=== PATIENT | female | born 1980 | race Caucasian/White ===

== ENCOUNTER 2021-09-30 16:30 | Emergency (ER) | payer BC, SELFPAY ==
[2021-09-30 16:31] VITALS: BP 118/47; PULSE 82; RESP 18; TEMP 36.8; O2SAT 98; BMI 48.4
--- NOTE | 2021-09-30 16:55 | HMH.EDGENADL ---
ED Disposition Clinical Impression: Second degree burn of back Qualifiers: Encounter type: initial encounter Qualified Code(s): T21.24XA - Burn of second degree of lower back, initial encounter Disposition: Home, Self-Care Condition on Discharge: Good Instructions: DI for Painting, How to Take Care of a Burn Additional Instructions: follow up PCP, return for worse - Critical Care Critical Care Time: No Attestation: On , the high probability of a clinically significant, sudden or life threatening deterioration of the following system(s) required my full and direct attention, intervention and personal management. The time I documented below is in addition to time spent performing reported procedures but includes the following listed in this critical care notation. Medical Decision Making - Medical Records Medical records reviewed: Yes: I reviewed the patient's medical records. - Adrian Inquiry Pt receiving controlled substance: No Vital Signs: 09/30/21 16:31 Temperature 98.2 F Temperature Source Oral Pulse Rate [Brachial] 82 Respiratory Rate 18 Blood Pressure [Right Arm] 118/47 L Blood Pressure Mean [Right Arm] 70 Blood Pressure Source [Right Arm] Automatic Cuff Blood Pressure Position [Right Arm] Sitting 02 Sat by Pulse Oximetry 98 Oxygen Delivery Method Room Air - Lab Data Lab Results 09/30/21 16:55: Urine Color Yellow, Urine Appearance Sl cloudy, Urine pH 5.5, Ur Specific [place] >= 1.030, Urine Protein Negative, Urine Glucose (UA) Negative, Urine Ketones Negative, Urine Blood Trace-i, Urine Nitrate Negative, Urine Bilirubin 1+ A, Urine Urobilinogen 1.0, Ur Leukocyte Esterase Negative, Urine RBC 3-5, Urine WBC None, Ur Squamous Epith Cells Occasional, Urine Bacteria Trace 09/30/21 17:20: WBC 9.2, RBC 4.37, Hgb 14.0, Hct 43.8, MCV 100.2 H, MCH 32.1 H, MCHC 32.1, RDW 14.5, Plt Count 393, MPV 9.2, Neut % (Auto) 72.6, Lymph % (Auto) 17.8, [place] % (Auto) 4.6, Eos % (Auto) 2.4, Baso % (Auto) 2.6 H, Neut # (Auto) 6.6, Lymph # (Auto) 1.6, [place] # (Auto) 0.4, Eos # (Auto) 0.2, Baso # (Auto) 0.2 09/30/21 17:20: Sodium 138, Potassium 3.8, Chloride 103, Carbon Dioxide 30, Anion Gap 8.8, BUN 14, Creatinine 0.80, Estimated Creat Clear 88, Estimated GFR 79, Est GFR ( Amer) 96, Glucose 96, Calcium 9.3 Result diagrams: 09/30/21 17:20 09/30/21 17:20 General Adult HPI - General Stated complaint: Sun burn affect kidneys Time Seen by Provider: 09/30/21 16:55 - History of Present Illness HPI narrative: c/o sunburn on back from tanning bed few days ago and decreased urine output reports h/o ckd just moved [place] yesterday Onset (ago): day(s) Radiation: non-radiation Severity: moderate Consistency: constant Relieving factors: none Exacerbating factors: none Associated symptoms: denies other symptoms - Related Data Allergies Allergy/AdvReac Type Severity Reaction Status Date / Time ibuprofen Allergy Verified 09/30/21 17:11 ketorolac [From Toradol] Allergy Verified 09/30/21 17:11 morphine Allergy Verified 09/30/21 17:11 tramadol Allergy Verified 09/30/21 17:11 [facility] History - Hepatitis A Screen Attestation statement:: This patient has been screened for Hepatitis A risk factors. ROS Obtained: Yes All systems reviewed & no additional complaints Physical Exam - General General appearance: alert, in no apparent distress - Head Head exam: atraumatic, normocephalic - Eye Eye exam: Present: normal appearance, PERRL, EOMI - Neck Neck exam: Present: normal inspection, full ROM, trachea midline - Chest Chest inspection: Present: normal inspection, symmetric chest wall rise. Absent: tenderness - Respiratory Respiratory exam: Present: normal lung sounds bilaterally. Absent: respiratory distress, wheezes - Cardiovascular Cardiovascular exam: Present: regular rate, normal rhythm, tachycardia, normal heart sounds - Abdominal Exam Abdominal exam: Present: soft. Absent: distent
--- NOTE | 2021-09-30 16:56 | PC.NURSE ---
ATTEMPTING TO COLLECT UA AT THIS TIME
[2021-09-30 17:09] LABS: Microscopic, Urine URINE MICROSCOPIC (MICROSCOPIC)
[2021-09-30 17:12] LABS: Appearance,Urine SL CLOUDY (Clear); Blood, Urine TRACE-I (Negative); Color,Urine YELLOW (Yellow); Glucose,Urine (UA) Negative (Negative); Ketones,Urine Negative (Negative); Leukocyte Esterase,Urine Negative (Negative); Nitrate,Urine Negative (Negative); PH,Urine 5.5 (5.0-8.5); Protein,Urine Negative (Negative); Specific Gravity, Urine >= 1.030 (1.005-1.030)
--- NOTE | 2021-09-30 17:20 | PC.NURSE ---
[id number] ED MD AT BEDSIDE FOR EVALUATION
[2021-09-30 17:28] LABS: Bilirubin,Urine 1+ (Negative)
[2021-09-30 17:30] LABS: Bacteria,Urine Trace /lpf; Squamous Epithelial Cell,Urine Occasional #/hpf (0-5)
[2021-09-30 17:39] LABS: Basophils # 0.2 K/mm3 (0-0.2); Basophils % 2.6 % (0.1-2.0); Chloride 103 mmol/L (98-107); Eosinophils # 0.2 K/mm3 (0.0-0.4); Eosinophils % 2.4 % (0.1-12.0); Hematocrit 43.8 % (37.0-47.0); Lymphocytes # 1.6 K/mm3 (0.7-4.5); Lymphocytes % 17.8 % (10-50); Mean Corpuscular HGB Conc 32.1 g/dL (31.8-35.4); Mean Corpuscular Hemoglobin 32.1 pg (27.0-31.2); Mean Corpuscular Volume 100.2 fl (81-99); Mean Platelet Volume 9.2 fl (7.4-10.4); Monocytes # 0.4 K/mm3 (0.1-1.0); Monocytes % 4.6 % (1.7-9.3); Neutrophils # 6.6 K/mm3 (1.8-7.8); Neutrophils % 72.6 % (37.0-80.0); Platelet Count 393 K/mm3 (142-424); Potassium 3.8 mmoL/L (3.5-5.1); Red Blood Count 4.37 M/mm3 (4.20-5.40); Red Cell Distribution Width 14.5 % (11.5-17.5); Sodium 138 mmol/L (136-145); White Blood Count 9.2 K/mm3 (4.8-10.8)
[2021-09-30 17:42] LABS: Anion Gap 8.8 mEq/L (5-15); Calcium 9.3 mg/dl (8.4-10.2); Carbon Dioxide 30 mmol/L (22.0-30.0); Glucose 96 mg/dl (74-100)
[2021-09-30 17:47] LABS: Blood Urea Nitrogen 14 mg/dl (7-17); Creatinine Clearance Estimated 88 mL/min (50-200); Estimated Glomerular Filt Rate 79 ml/min (>60); GFR (African American) 96 ML/MIN (>60)
--- NOTE | 2021-09-30 17:56 | PC.NURSE ---
ED MD AT BEDSIDE UPDATING PT ON POC
[2021-09-30 18:00] VITALS: BP 120/74; PULSE 79; RESP 18; TEMP 36.7; O2SAT 100
== END 2021-09-30 18:05 | disposition home or self-care (01) ==
PROVIDERS: Emergency Provider Emergency Medicine
DX: T21.24XA Burn of second degree of lower back, initial encounter (principal); L55.1 Sunburn of second degree; N18.9 Chronic kidney disease, unspecified; Z79.52 Long term (current) use of systemic steroids; Z88.5 Allergy status to narcotic agent; Z88.6 Allergy status to analgesic agent
CPT/HCPCS: 80048; 81001; 85025; 99283

== ENCOUNTER 2021-10-18 10:43 | Emergency (ER) | payer BC, SELFPAY ==
[2021-10-18 11:10] VITALS: BP 107/78; PULSE 74; RESP 18; TEMP 36.7; O2SAT 96; BMI 32.3
--- NOTE | 2021-10-18 11:13 | HMH.EDUTC ---
[facility] [place] Disposition Clinical Impression: Acute bronchitis Qualifiers: Bronchitis organism: unspecified organism Qualified Code(s): J20.9 - Acute bronchitis, unspecified Disposition: Home, Self-Care Condition on Discharge: Good Instructions: DI for Acute Bronchitis Additional Instructions: Drink plenty of fluids. Take tylenol or ibuprofen for pain or fever. Take the medications as directed. Follow up with your regular doctor. GO TO THE ER FOR ANY WORSENING SYMPTOMS Quarantine until you know the results of your covid-19 test. Notify your school or workplace of your results and follow their instructions regarding return to work/school. Prescriptions: Benzonatate [Benzonatate 100mg cap] 100 mg PO TIDP PRN #30 cap PRN Reason: Cough Transmission Status: Received by [facility] Azithromycin [Z-Dale 250mg Tab*] 250 mg PO UD DOSE PK #6 tab Transmission Status: Received by [facility] Referrals: Provider,Referral, [Primary Care Provider] - Time of Disposition: 11:48 Medical Decision Making - Medical Records Medical records reviewed: No: I reviewed the patient's medical records. - Adrian Inquiry Pt receiving controlled substance: No Vital Signs: 10/18/21 11:10 10/18/21 12:01 Temperature 98.1 F 98.1 F Temperature Source Oral Pulse Rate 74 Pulse Rate [Left] 74 Respiratory Rate 18 18 Blood Pressure 107/78 L Blood Pressure [Right Arm] 107/78 L Blood Pressure Mean [Right Arm] 87 02 Sat by Pulse Oximetry 96 - Lab Data Lab Results 10/18/21 11:04: Strep [facility] Negative Orders (Tests/Meds): ORDERS Category Date Time Status Strep Screen Confirmation Stat Micro 10/18/21 11:04 Received [facility] HPI - General Stated complaint: cough, chest congestion, body aches, elevated bp Time Seen by Provider: 10/18/21 11:13 Mode of Arrival: Ambulatory Source of Information: Patient Limitations: No Limitations Description of Symptoms (Recalled from Triage Doc. by RN): patient comes in with complaints of sore throat, cough, body aches, elevated blood pressure. symptoms began 2 days ago HEENT Symptoms (Recalled from RN notes): Yes Resp Symptoms (Recalled from RN notes): Yes Skin Symptoms (Recalled from RN notes): No MS Symptoms (Recalled from RN notes): No Functional Status (Recalled from RN notes): n/a - History of Present Illness Provider Complaint: She c/o worsening sinus congestion that began 2 days ago. - Related Data Previous Rx's Medication Instructions Recorded Azithromycin [Z-Dale 250mg Tab*] 250 mg PO UD DOSE PK #6 tab 10/18/21 Benzonatate [Benzonatate 100mg 100 mg PO TIDP PRN #30 cap 10/18/21 cap] Allergies Allergy/AdvReac Type Severity Reaction Status Date / Time ibuprofen Allergy Verified 09/30/21 17:11 ketorolac [From Toradol] Allergy Verified 09/30/21 17:11 morphine Allergy Verified 09/30/21 17:11 tramadol Allergy Verified 09/30/21 17:11 - Worker's Comp Is this a Worker's Comp case?: No H History - Hepatitis A Screen Attestation statement:: This patient has been screened for Hepatitis A risk factors. I have reviewed the patient's past medical history: Yes ROS Obtained: Yes All systems reviewed & no additional complaints - Constitutional Constitutional: Reports as per HPI - Eyes Eyes: Denies eye discharge - ENT Ears, Nose, Mouth, and Throat: Reports as per HPI - Cardiovascular Cardiovascular: Denies chest pain - Respiratory Respiratory: Reports chest congestion, Reports cough Physical Exam - General General appearance: alert, in no apparent distress - Head Head exam: atraumatic, normocephalic, normal inspection - Eye Eye exam: Present: normal appearance, PERRL, EOMI - ENT ENT exam: Present: normal exam, normal oropharynx, mucous membranes moist, TM's normal bilaterally, normal external ear exam - Neck Neck exam: Present: normal inspection, full ROM, tra
[2021-10-18 11:20] LABS: UTC Strep Screen (Rapid) Negative (Negative)
[2021-10-18 12:01] VITALS: BP 107/78; PULSE 74; RESP 18; TEMP 36.7
== END 2021-10-18 12:02 | disposition home or self-care (01) ==
PROVIDERS: Emergency Provider Nurse Practitioner Family
DX: J20.9 Acute bronchitis, unspecified (principal)
CPT/HCPCS: 87880; 99283; C9803; U0003; U0005

== ENCOUNTER 2021-10-25 11:21 | Emergency (ER) | payer OTHER, SELFPAY ==
--- NOTE | 2021-10-25 11:24 | PC.NURSE ---
pt ambulate to the restroom for urine sample
--- NOTE | 2021-10-25 11:30 | PC.NURSE ---
urine sent on pt
[2021-10-25 11:32] VITALS: BMI 46.7
--- NOTE | 2021-10-25 11:32 | HMH.EDGENADL ---
ED Disposition Clinical Impression: Essential hypertension Low back pain Qualifiers: Chronicity: acute Back pain laterality: right Sciatica presence: without sciatica Qualified Code(s): M54.50 - Low back pain, unspecified Disposition: Home, Self-Care Condition on Discharge: Good Instructions: DI for Low Back Pain Additional Instructions: Losartan/HCTZ as prescribed. Prednisone as prescribed. Robaxin as prescribed. Tylenol may also be taken. Off work for 2 days. You are being provided with a list of physicians available for follow-up of your condition. Please call a physician on this list to arrange a follow-up appointment as soon as possible. Additional instructions for BACK PAIN: See your physician as soon as possible for further evaluation. Return immediately if back pain becomes intolerable, or if fever, numbness or weakness of your legs, loss of control of your bowels or bladder. Additional instructions regarding BLOOD PRESSURE: One or more of your blood pressure readings elevated today. Please contact your primary care physician for further evaluation or treatment of your blood pressure. Prescriptions: Losartan/Hydrochlorothiazide [Losartan-Hctz 100-12.5 mg Tab] 1 each PO DAILY #30 tab Transmission Status: Received by [facility] methocarbamoL [Methocarbamol] 750 mg PO QID #20 tab Transmission Status: Received by [facility] predniSONE [Prednisone 20mg Tab] 20 mg PO BID #10 tab Transmission Status: Received by [facility] Referrals: Provider,Referral, [Primary Care Provider] - Forms: Work/School Release - Critical Care Critical Care Time: No Attestation: On 10/25/21, the high probability of a clinically significant, sudden or life threatening deterioration of the following system(s) required my full and direct attention, intervention and personal management. The time I documented below is in addition to time spent performing reported procedures but includes the following listed in this critical care notation. Medical Decision Making - Adrian Inquiry Pt receiving controlled substance: No Adrian was queried for this patient: Yes Vital Signs: 10/25/21 11:33 Temperature 98.2 F Temperature Source Oral Pulse Rate [Left Radial] 74 Respiratory Rate 18 Blood Pressure [Right Arm] 188/107 H Blood Pressure Mean [Right Arm] 134 02 Sat by Pulse Oximetry 98 Oxygen Delivery Method Room Air - Lab Data Lab Results 10/25/21 11:20: Urine Color Yellow, Urine Appearance Sl cloudy, Urine pH 5.0, Ur Specific [place] >= 1.030, Urine Protein Negative, Urine Glucose (UA) Negative, Urine Ketones Negative, Urine Blood 1+, Urine Nitrate Negative, Urine Bilirubin Negative, Urine Urobilinogen 0.2, Ur Leukocyte Esterase Negative Orders (Tests/Meds): ED MEDICATIONS Discontinued Medications Generic Name Dose Route Start Last Admin Trade Name Adrianne PRN Reason Stop Dose Admin Dexamethasone Sodium Phosphate 10 mg 10/25/21 11:42 10/25/21 11:46 Dexamethasone 4mg/Ml 1ml Vial IM 10/25/21 11:43 10 mg ONCE ONE Administration ORDERS Category Date Time Status Urinalysis and Microscopic Stat Lab 10/25/21 11:20 Results Medical Decision Narrative: Patient's blood pressure noted to be elevated. States that she is treated for hypertension with losartan/HCTZ 50/25 but does not have any of her medications since she moved here from [place]. She says that she has contacted her to ask to have it sent here, but he is refusing to do so. General Adult HPI - General Stated complaint: lower back pain, no known accident Time Seen by Provider: 10/25/21 11:30 - History of Present Illness HPI narrative: Complains of lower back pain. States that for the past couple days she has had pain in her right lower lumbar area. Pain increases with movement and touch. She says that she thinks she strained her back at work. She has a prior history of back p
[2021-10-25 11:33] VITALS: BP 188/107; PULSE 74; RESP 18; TEMP 36.8; O2SAT 98; BMI 46.7
[2021-10-25 11:39] LABS: Appearance,Urine SL CLOUDY (Clear); Bilirubin,Urine Negative (Negative); Blood, Urine 1+ (Negative); Color,Urine YELLOW (Yellow); Glucose,Urine (UA) Negative (Negative); Ketones,Urine Negative (Negative); Leukocyte Esterase,Urine Negative (Negative); Microscopic, Urine URINE MICROSCOPIC (MICROSCOPIC); Nitrate,Urine Negative (Negative); Protein,Urine Negative (Negative); Specific Gravity, Urine >= 1.030 (1.005-1.030); Urobilinogen,Urine 0.2 EU/dl (0.2)
[2021-10-25 11:51] VITALS: BP 179/102; PULSE 71; RESP 18; TEMP 36.8; O2SAT 99
[2021-10-25 11:54] LABS: Bacteria,Urine 2+ /lpf; RBC,Urine Occasional #/hpf (0-3); WBC,Urine Occasional #/hpf (0-3)
[2021-10-25 11:55] LABS: Mucus,Urine 1+ /lpf
== END 2021-10-25 11:58 | disposition home or self-care (01) ==
PROVIDERS: Emergency Provider Emergency Medicine
DX: M54.50 Low back pain, unspecified (principal); R20.2 Paresthesia of skin; I10 Essential (primary) hypertension; Z79.52 Long term (current) use of systemic steroids; Z88.5 Allergy status to narcotic agent; Z88.6 Allergy status to analgesic agent
CPT/HCPCS: 81001; 87086; 96372; 99284

== ENCOUNTER 2021-10-27 11:33 | Emergency (ER) | payer OTHER, SELFPAY ==
--- NOTE | 2021-10-27 11:40 | HMH.EDUTC ---
[facility] [place] Clinical Impression: Viral syndrome Pharyngitis Qualifiers: Pharyngitis/tonsillitis etiology: unspecified etiology Qualified Code(s): J02.9 - Acute pharyngitis, unspecified Disposition: Home, Self-Care Condition on Discharge: Good Instructions: DI for Pharyngitis/Tonsillopharyngitis -- Adult Additional Instructions: Drink plenty of fluids. Take tylenol or ibuprofen for pain or fever. Take the medications as directed. Follow up with your regular doctor. GO TO THE ER FOR ANY WORSENING SYMPTOMS Quarantine until you know the results of your covid-19 test. Notify your school or workplace of your results and follow their instructions regarding return to work/school. Prescriptions: Ondansetron [Zofran 4mg ODT] 4 mg PO Q8HP PRN #20 tab PRN Reason: Nausea Transmission Status: Received by [facility] Benzonatate [Benzonatate 100mg cap] 100 mg PO TIDP PRN #30 cap PRN Reason: Cough Transmission Status: Received by [facility] Referrals: Provider,Referral, [Primary Care Provider] - Forms: Work/School Release Time of Disposition: 12:37 Medical Decision Making - Medical Records Medical records reviewed: No: I reviewed the patient's medical records. - Adrian Inquiry Pt receiving controlled substance: No Vital Signs: 10/27/21 11:57 10/27/21 12:38 Temperature 98.0 F 98.0 F Temperature Source Oral Pulse Rate 68 Pulse Rate [Left] 68 Respiratory Rate 18 18 Blood Pressure 145/91 H Blood Pressure [Right Arm] 145/91 H Blood Pressure Mean [Right Arm] 109 02 Sat by Pulse Oximetry 96 - Lab Data Lab results reviewed: Yes: I reviewed the patient's lab results. Lab Results 10/27/21 12:19: Strep [facility] Negative Orders (Tests/Meds): ORDERS Category Date Time Status Strep Screen Confirmation Stat Micro 10/27/21 12:19 Received [facility] [place] HPI - General Stated complaint: Sore throat, cough, bodyaches Time Seen by Provider: 10/27/21 11:40 - History of Present Illness Provider Complaint: She states that for the past 1 days she has had worsening sore throat, right ear pain and she has felt bad. - Related Data Previous Rx's Medication Instructions Recorded Azithromycin [Z-Dale 250mg Tab*] 250 mg PO UD DOSE PK #6 tab 10/18/21 Benzonatate [Benzonatate 100mg 100 mg PO TIDP PRN #30 cap 10/18/21 cap] Losartan/Hydrochlorothiazide 1 each PO DAILY #30 tab 10/25/21 [Losartan-Hctz 100-12.5 mg Tab] methocarbamoL [Methocarbamol] 750 mg PO QID #20 tab 10/25/21 predniSONE [Prednisone 20mg 20 mg PO BID #10 tab 10/25/21 Tab] Benzonatate [Benzonatate 100mg 100 mg PO TIDP PRN #30 cap 10/27/21 cap] Ondansetron [Zofran 4mg ODT] 4 mg PO Q8HP PRN #20 tab 10/27/21 Allergies Allergy/AdvReac Type Severity Reaction Status Date / Time ibuprofen Allergy Verified 10/27/21 12:01 ketorolac [From Toradol] Allergy Verified 10/27/21 12:01 morphine Allergy Verified 10/27/21 12:01 tramadol Allergy Verified 10/27/21 12:01 [facility] History - Hepatitis A Screen Attestation statement:: This patient has been screened for Hepatitis A risk factors. I have reviewed the patient's past medical history: Yes ROS Obtained: Yes All systems reviewed & no additional complaints - Constitutional Constitutional: Reports as per HPI - Eyes Eyes: Reports eye discharge - ENT Ears, Nose, Mouth, and Throat: Reports as per HPI Physical Exam - General General appearance: alert, in no apparent distress - Head Head exam: atraumatic, normocephalic, normal inspection - Eye Eye exam: Present: normal appearance, PERRL, EOMI - ENT ENT exam: Present: mucous membranes moist, normal external ear exam - Expanded ENT Exam TM/Canal exam: Bilateral TM: erythema, bulging, effusion Nose exam: Present: sinus tenderness Nasal speculum exam: Bilateral: normal Throat exam: Present: tonsillar erythema, tonsillomegaly - Ne
[2021-10-27 11:57] VITALS: BP 145/91; PULSE 68; RESP 18; TEMP 36.7; O2SAT 96; BMI 47.2
[2021-10-27 12:20] LABS: UTC Strep Screen (Rapid) Negative (Negative)
[2021-10-27 12:38] VITALS: BP 145/91; PULSE 68; RESP 18; TEMP 36.7
== END 2021-10-27 12:46 | disposition home or self-care (01) ==
PROVIDERS: Emergency Provider Nurse Practitioner Family
DX: U07.1 COVID-19 (principal); J02.9 Acute pharyngitis, unspecified; H92.01 Otalgia, right ear; B34.9 Viral infection, unspecified; M79.10 Myalgia, unspecified site; Z79.51 Long term (current) use of inhaled steroids; Z79.899 Other long term (current) drug therapy; Z88.5 Allergy status to narcotic agent; Z88.6 Allergy status to analgesic agent; Z88.8 Allergy status to other drugs, medicaments and biological substances
CPT/HCPCS: 87880; 99213; C9803; G0463; U0003; U0005

== ENCOUNTER → 2021-12-01 13:31 | Outpatient (CLI) | payer OTHER, SELFPAY ==
--- NOTE | 2021-12-01 13:32 | US_ITS ---
FINAL REPORT CLINICAL HISTORY: vaginal cuff mass FINDINGS: Transvaginal sonographic images of the pelvis were obtained. There is questionable supracervical hysterectomy with nabothian cysts in the cervix versus small cysts in the vaginal cuff. The left ovary measures up to 7.2 cm with 2 cysts measuring up to 5.3 cm. The right ovary measures 4.6 cm with 2 cysts measuring up to 2.4 cm. There is a small amount of free fluid adjacent to the left ovary. IMPRESSION: Questionable supracervical hysterectomy with nabothian cysts in the cervix versus small cysts in the vaginal cuff. Bilateral ovarian cysts. Free fluid adjacent to the left ovary. Recommend follow-up ultrasound in 6-8 weeks. Reviewed, Interpreted and Dictated by Jose Hoff III, MD Transcribed by Crow Brewer Authenticated and [facility]
== END ==
PROVIDERS: PCP Physician Assistant; Visit Provider Obstetrics & Gynecology
DX: N89.8 Other specified noninflammatory disorders of vagina (principal)
CPT/HCPCS: 76830

== ENCOUNTER → 2021-12-08 07:27 | Outpatient (CLI) | payer OTHER, SELFPAY ==
[2021-12-08 20:06] LABS: Basophils # 0.1 K/mm3 (0-0.2); Eosinophils # 0.2 K/mm3 (0.0-0.4); Eosinophils % 2.1 % (0.1-12.0); Hematocrit 43.3 % (37.0-47.0); Lymphocytes # 2.4 K/mm3 (0.7-4.5); Lymphocytes % 21.4 % (10-50); Mean Corpuscular HGB Conc 32.3 g/dL (31.8-35.4); Mean Corpuscular Hemoglobin 31.8 pg (27.0-31.2); Mean Corpuscular Volume 98.6 fl (81-99); Mean Platelet Volume 10.1 fl (7.4-10.4); Monocytes # 0.7 K/mm3 (0.1-1.0); Neutrophils # 7.8 K/mm3 (1.8-7.8); Neutrophils % 69.5 % (37.0-80.0); Platelet Count 329 K/mm3 (142-424); Red Blood Count 4.39 M/mm3 (4.20-5.40); Red Cell Distribution Width 13.4 % (11.5-17.5); White Blood Count 11.2 K/mm3 (4.8-10.8)
[2021-12-08 20:48] LABS: Alanine Aminotransferase 12 U/L (12-78); Albumin Level 3.6 g/dl (3.5-5.0); Albumin/Globulin Ratio 1.4 (1.1-1.8); Alkaline Phosphatase 81 U/L (38-126); Anion Gap 13.8 mEq/L (5-15); Aspartate Amino Transferase 20 U/L (14-36); Bilirubin,Total 0.3 mg/dl (0.2-1.3); Blood Urea Nitrogen 11 mg/dl (7-17); Calcium 8.7 mg/dl (8.4-10.2); Carbon Dioxide 28 mmol/L (22.0-30.0); Chloride 101 mmol/L (98-107); Chol/HDL Ratio 4.8 (1-3.5); Cholesterol 187 mg/dl (140-200); Estimated Glomerular Filt Rate 79 ml/min (>60); GFR (African American) 96 ML/MIN (>60); Globulin 2.6 g/dL (1.3-3.2); Glucose 83 mg/dl (74-100); HDL Cholesterol 39 mg/dl (40-60); Potassium 3.8 mmoL/L (3.5-5.1); Sodium 139 mmol/L (136-145); Total Protein,Serum 6.2 g/dl (6.3-8.2); Triglycerides 128 mg/dl (30-150); VLDL Cholesterol 26 mg/dL (0-40)
[2021-12-08 20:58] LABS: Direct LDL Cholesterol 121.53 mg/dL (100-129)
[2021-12-08 21:02] LABS: 25-OH Vitamin D, Total 31.9 ng/mL (30-100)
[2021-12-08 21:16] LABS: Thyroid Stimulating Hormone 2.18 uIU/mL (0.465-4.68)
[2021-12-08 21:35] LABS: Vitamin B12 610 pg/mL (239-931)
== END ==
PROVIDERS: Physician Assistant; Visit Provider Obstetrics & Gynecology
DX: I10 Essential (primary) hypertension (principal); N89.8 Other specified noninflammatory disorders of vagina; E66.01 Morbid (severe) obesity due to excess calories; Z68.42 Body mass index [BMI] 45.0-49.9, adult
CPT/HCPCS: 80053; 80061; 82306; 82607; 84443; 85025

== ENCOUNTER → 2021-12-09 13:14 | Outpatient (CLI) | payer OTHER, SELFPAY ==
--- NOTE | 2021-12-09 13:30 | CT_ITS ---
FINAL REPORT TECHNIQUE: Axial images were obtained from the iliac crest to the pubic symphysis by computed tomography pre-and postcontrast administration. Coronal and sagittal reformats were submitted. This study was performed with techniques to keep radiation doses as low as reasonably achievable (ALARA). Individualized dose reduction techniques using automated exposure control or adjustment of mA and/or kV according to the patient''s size were employed. CLINICAL HISTORY: elvis ovarian cysts, cervical mass FINDINGS: Pelvis: The appendix is not identified. The urinary bladder is unremarkable. There is a 2.4 cm cyst in the right ovary. There are 2 left ovarian cysts. Largest ovarian cyst measures 5.8 cm. The smaller more anterior cyst measures 4.4 cm. There is an anterior midline pelvic wall hernia. There are small scattered lymph nodes. A definite cervical mass is not identified by CT. IMPRESSION: Bilateral ovarian cysts measuring up to 5.8 cm on the left. No definite cervical mass. Recommend correlation with gynecologic exam. Inferior midline pelvic wall hernia. Reviewed, Interpreted and Dictated by David Vyas MD Transcribed by Crow Brewer Authenticated and [facility]
== END ==
PROVIDERS: PCP Physician Assistant; Visit Provider Obstetrics & Gynecology
DX: R19.00 Intra-abdominal and pelvic swelling, mass and lump, unspecified site (principal)
CPT/HCPCS: 72194; Q9967

== ENCOUNTER → 2021-12-12 10:01 | Outpatient (CLI) | payer OTHER, SELFPAY | PROVIDERS: PCP Physician Assistant; Visit Provider Physician Assistant | DX: J45.909 Unspecified asthma, uncomplicated (principal); J44.9 Chronic obstructive pulmonary disease, unspecified | CPT/HCPCS: 94060; 94726; 94729 ==

== ENCOUNTER 2021-12-15 22:30 | Emergency (ER) | payer OTHER, SELFPAY ==
[2021-12-15 22:31] VITALS: BP 129/66; PULSE 78; RESP 16; TEMP 36.8; O2SAT 98; BMI 46.3
--- NOTE | 2021-12-15 23:02 | CT_ITS ---
PROCEDURE INFORMATION: Exam: CT Abdomen And Pelvis With Contrast Exam date and time: 12/15/2021 11:16 PM Age: 41 years old Clinical indication: Abdominal pain; Localized; Prior surgery; Surgery type: Partial hysterectomy, cholecystectomy; Patient HX: PT states lower abd pressure and that she noticed a knot that is painful. ; Additional info: Abdominal swelling TECHNIQUE: Imaging protocol: Computed tomography of the abdomen and pelvis with contrast. Radiation optimization: All CT scans at this facility use at least one of these dose optimization techniques: automated exposure control; mA and/or kV adjustment per patient size (includes targeted exams where dose is matched to clinical indication); or iterative reconstruction. Contrast material: ISOVUE; Contrast volume: 75 ml; Contrast route: IV; COMPARISON: CT PELVIS WO/W CON 12/09/2021 2:10 PM FINDINGS: Lungs: The lung bases are clear. No pleural effusion. Liver: There are adjacent rounded hypodensities of the right hepatic lobe measuring 2.8 and 2.2 cm. Findings are not clearly artist's representative of cysts. For further characterization, ultrasound is suggested. Gallbladder and bile ducts: Status post cholecystectomy. No ductal dilation. Pancreas: Unremarkable. Spleen: Unremarkable. Adrenal glands: Unremarkable. Kidneys and ureters: No renal mass or hydronephrosis. Stomach and bowel: Small and large bowel caliber is normal. No obstruction. There are postoperative changes of the midline pelvic wall hernia which contains loops of nonobstructing bowel, unchanged since the comparison study. Appendix: The appendix is identified and is normal. Intraperitoneal space: No free air. No significant fluid collection. Retroperitoneal space: No bulky lymphadenopathy. Vasculature: Unremarkable. No abdominal aortic aneurysm. Lymph nodes: Unremarkable. No enlarged lymph nodes. Urinary bladder: Unremarkable as visualized. Reproductive: Status post hysterectomy. There is a 5 cm rounded cystic lesion of the left pelvis, similar in appearance to the comparison study, likely ovarian in origin. A 2 cm cyst of the right ovary is also stable. Bones/joints: Unremarkable. No acute osseous abnormality. Soft tissues: Unremarkable. IMPRESSION: 1. Inferior midline pelvic wall hernia appears unchanged since the comparison study. No evidence of bowel obstruction. 2. Adjacent hypodense lesions of the right hepatic lobe measuring 2.8 and 2.2 cm. For further characterization ultrasound is suggested. Differential diagnosis includes atypical cysts versus hemangiomas. 3. Bilateral ovarian cysts, stable. 4. Status post cholecystectomy and hysterectomy.
--- NOTE | 2021-12-15 23:10 | HMH.EDABDPAI ---
Discharge Plan Disposition Patient Disposition: Home, Self-Care Chief Complaint: Abdominal Pain Prescriptions Prescriptions: No Action Anoro Ellipta 62.5-25 mcg/actuation blister with device 1 inh inhalation DAILY Qty: 28 2RF albuterol sulfate [ProAir HFA] 90 mcg/actuation HFA aerosol inhaler 2 puff inhalation Q4-6H PRN (Reason: shortness of breath or wheezing) Qty: 8.5 5RF aspirin [Adult Aspirin Regimen] 81 mg tablet,delayed release (DR/EC) 81 mg PO DAILY Qty: 90 1RF clobetasol 0.05 % cream 1 applic topical BID Qty: 60 5RF clonidine HCl 0.1 mg tablet 0.1 mg PO BID Qty: 60 5RF Rx Instructions: Take 1 tablet by oral route BID if blood pressure goes over 160/90 cyanocobalamin (vitamin B-12) 1,000 mcg/mL solution 1,000 mcg IM QMONTH Qty: 1 5RF Enbrel 25 mg/0.5 mL solution 50 mg SQ WEEKLY Qty: 2 0RF fluoxetine 20 mg capsule 20 mg PO DAILY Qty: 90 1RF fluticasone propionate [Flonase Allergy Relief] 50 mcg/actuation spray,suspension 1 spray intranasal BID Qty: 16 5RF Rx Instructions: administer into each nostril hydroxychloroquine 200 mg tablet 200 mg PO BID Qty: 180 1RF ketoconazole 2 % cream 1 applic topical BID Qty: 60 5RF Algramo 1.5 billion cell capsule 1 cap PO DAILY Qty: 90 1RF losartan-hydrochlorothiazide 100-25 mg tablet 1 tab PO DAILY Qty: 90 1RF methocarbamol 750 mg tablet 750 mg PO QID Qty: 120 5RF methotrexate sodium 2.5 mg tablet 20 mg PO WEEKLY Qty: 32 5RF ropinirole 0.25 mg tablet 0.25 mg PO HS Qty: 90 1RF Rx Instructions: administer 1-3 hours before bedtime trazodone 50 mg tablet 50 mg PO HS PRN (Reason: insomnia) Qty: 90 1RF oxycodone-acetaminophen 7.5-325 mg tablet 1 tab PO QID Qty: 120 0RF pregabalin [Lyrica] 150 mg capsule 150 mg PO TID Qty: 90 0RF ondansetron 4 mg tablet,disintegrating 4 mg PO Q8HP PRN (Reason: Nausea) Qty: 20 0RF Referrals Follow up/Referrals: Maricarmen Kaye PA [Primary Care Provider] - See instructions Clinical Impressions Clinical Impression: Hernia Instructions Patient Instructions: DI for Acute Abdominal Pain Discharge ED Provider: Kenneth Garrett Abdominal Pain HPI General Chief Complaint: Abdominal Pain Stated Complaint: LOWER ABD PAIN Time Seen by Provider: 12/15/21 23:11 Mode of Arrival: Wheelchair Source of Information: Patient and Spouse Limitations: No Limitations Description of Symptoms (Recalled from ER Triage Doc. by RN): Patient states that she has been having pelvic pressure for several months related to a mass in her cervix, However, yoselin patient was getting ready for bed when she noticed a knot in her lower abdomen. States that she began having pain when she pushed on the knot. Denies any injury. C/O constant pressure in that area. Does have a history of a mesh repair of an abdominal hernia. History of Present Illness HPI narrative: tender area lower abd with hx of hernia started yoselin AVILES complaint: abdominal pain Onset (ago): hour(s) Consistency: now resolved Location: suprapubic Severity: moderate Associated symptoms: denies other symptoms Related Data Previous Rx's Medication Instructions Recorded Lactobacills gasseri-Bifidobac 1 cap PO DAILY #90 caps 12/08/21 bifidum,longum 1.5 billion cell capsule (Algramo) albuterol sulfate 90 mcg/actuation 2 puff inhalation Q4-6H PRN 12/08/21 aerosol inhaler (ProAir HFA) shortness of breath or wheezing #8.5 grams aspirin 81 mg tablet,delayed 81 mg PO DAILY #90 tabs 12/08/21 release (Adult Aspirin Regimen) clobetasol 0.05 % topical cream 1 applic topical BID #60 grams 12/08/21 clonidine HCl 0.1 mg tablet 0.1 mg PO BID #60 tabs 12/08/21 cyanocobalamin (vitamin B-12) 1,000 mcg IM QMONTH #1 mL 12/08/21 1,000 mcg/mL injection solution etanercept 25 mg/0.5 mL 50 mg SQ WEEKLY #2 mL 12/08/21 subcutaneous solution (Enbrel) fluox
[2021-12-15 23:19] LABS: Basophils # 0.2 K/mm3 (0-0.2); Basophils % 2.4 % (0.1-2.0); Eosinophils # 0.4 K/mm3 (0.0-0.4); Eosinophils % 4.6 % (0.1-12.0); Hematocrit 44.2 % (37.0-47.0); Hemoglobin 14.2 g/dL (12.2-16.2); Lymphocytes # 2.6 K/mm3 (0.7-4.5); Lymphocytes % 30.1 % (10-50); Mean Corpuscular HGB Conc 32.1 g/dL (31.8-35.4); Mean Corpuscular Hemoglobin 31.5 pg (27.0-31.2); Mean Corpuscular Volume 98.1 fl (81-99); Mean Platelet Volume 8.8 fl (7.4-10.4); Monocytes # 0.6 K/mm3 (0.1-1.0); Monocytes % 6.3 % (1.7-9.3); Neutrophils # 4.9 K/mm3 (1.8-7.8); Neutrophils % 56.7 % (37.0-80.0); Platelet Count 307 K/mm3 (142-424); Red Blood Count 4.51 M/mm3 (4.20-5.40); Red Cell Distribution Width 13.3 % (11.5-17.5); White Blood Count 8.7 K/mm3 (4.8-10.8)
[2021-12-15 23:20] LABS: Chloride 102 mmol/L (98-107); Sodium 140 mmol/L (136-145)
[2021-12-15 23:23] LABS: Alanine Aminotransferase 17 U/L (12-78); Albumin Level 3.9 g/dl (3.5-5.0); Albumin/Globulin Ratio 1.3 (1.1-1.8); Alkaline Phosphatase 88 U/L (38-126); Aspartate Amino Transferase 43 U/L (14-36); Blood Urea Nitrogen 9 mg/dl (7-17); Carbon Dioxide 34 mmol/L (22.0-30.0); Creatinine Clearance Estimated 88 mL/min (50-200); Estimated Glomerular Filt Rate 79 ml/min (>60); GFR (African American) 96 ML/MIN (>60); Globulin 2.9 g/dL (1.3-3.2); Total Protein,Serum 6.8 g/dl (6.3-8.2)
[2021-12-15 23:24] LABS: Calcium 8.4 mg/dl (8.4-10.2); Glucose 90 mg/dl (74-100)
[2021-12-15 23:26] LABS: Bilirubin,Total < 0.1 mg/dl (0.2-1.3)
[2021-12-16 00:26] LABS: Appearance,Urine CLEAR (Clear); Bilirubin,Urine Negative (Negative); Blood, Urine TRACE-I (Negative); Color,Urine YELLOW (Yellow); Glucose,Urine (UA) Negative (Negative); Ketones,Urine Negative (Negative); Leukocyte Esterase,Urine Negative (Negative); Microscopic, Urine URINE MICROSCOPIC (MICROSCOPIC); Nitrate,Urine Negative (Negative); Protein,Urine Negative (Negative); Urobilinogen,Urine 0.2 EU/dl (0.2)
[2021-12-16 00:32] LABS: Bacteria,Urine Trace /lpf; RBC,Urine Occasional #/hpf (0-3); WBC,Urine Occasional #/hpf (0-3)
[2021-12-16 01:28] VITALS: BP 115/75; PULSE 72; RESP 19; TEMP 36.7; O2SAT 97
== END 2021-12-16 01:53 | disposition home or self-care (01) ==
PROVIDERS: Emergency Provider Emergency Medicine; PCP Physician Assistant
DX: K46.9 Unspecified abdominal hernia without obstruction or gangrene (principal); R19.00 Intra-abdominal and pelvic swelling, mass and lump, unspecified site; R06.02 Shortness of breath; R11.0 Nausea; I95.9 Hypotension, unspecified; G47.00 Insomnia, unspecified; E66.9 Obesity, unspecified; F17.210 Nicotine dependence, cigarettes, uncomplicated; Z68.41 Body mass index [BMI] 40.0-44.9, adult; Z79.51 Long term (current) use of inhaled steroids; Z79.52 Long term (current) use of systemic steroids; Z79.899 Other long term (current) drug therapy; Z88.5 Allergy status to narcotic agent; Z88.6 Allergy status to analgesic agent; Z88.8 Allergy status to other drugs, medicaments and biological substances; Z82.49 Family history of ischemic heart disease and other diseases of the circulatory system; Z83.3 Family history of diabetes mellitus; Z80.9 Family history of malignant neoplasm, unspecified
CPT/HCPCS: 74177; 80053; 81001; 85025; 96374; 96375; 99285; J2405; Q9967

== ENCOUNTER → 2021-12-25 09:58 | Outpatient (POV) | payer OTHER, SELFPAY ==
[2021-12-25 10:32] VITALS: BP 160/107; PULSE 88; RESP 19; TEMP 36.1; O2SAT 97; BMI 45.1
--- NOTE | 2021-12-25 11:48 | EXP.PAIN.OV ---
HPI Data of Consult Patient: new to practice Consult date: 12/25/21 Requesting Physician: Lori Edward APRN Primary Care Provider: ALLEGRA Thomas Consult Narrative Reason for consult: Low back pain, neck pain, bilateral leg pain History of present illness: Ms. Corral is a 41 year old female who presents today as a new patient. She is a referral from Maricarmen Kaye's office. Today she rates her pain a 8 out of 10. She states the pain is all in her neck and low back that radiates into her bilateral lower extremities. Patient denies any trauma or injury. She states this pain has been going on for years and it has progressively worsened over time. Patient states she did just moved from [place] a few months ago and in prior had been referred to a pain clinic in that state however she never got around to going to them. Patient describes this as a aching, throbbing, burning sensation that is worse with increased activity. Patient states she does have a history of rheumatoid arthritis and fibromyalgia. Patient states her pain is frequently affected by the weather and worsened in cold temperatures. Patient states that she has an intolerance to NSAIDs and cannot take any. Patient does state that she takes Tylenol [id number] however it does not provide any improvement of her symptoms. Patient has used heat that does provide relief however only temporary. Patient has not ever done physical therapy or chiropractor in the past. Patient is currently managed with Percocet 7.5 mg 4 times a day and pregabalin 150 mg 3 times a day by Dr. Garrett's office. Patient states she does have some constipation and stomach issues with these medications however they do provide improvement of her pain symptoms. Patient states that she previously was on hydrocodone 10 mg in [place] and this significantly improved her symptoms as well as caused less issues with her stomach. Patient states she has not had any imaging for at least a year to a year and a half. Patient states she was previously told that her old imaging showed degenerative disc disease as well as a pinched nerve. her Adrian is [id number]. It is been reviewed and appropriate. CC: Lori Edward APRN [facility] Medical History (Updated 12/25/21 @ 11:55 by Lori Edward APRN) Abdominal pain Anxiety COPD (chronic obstructive pulmonary disease) Depression HTN (hypertension) Hx of hypotension Ovarian cyst Vaginal mass Vaginal pain Surgical History H/O dilation and curettage H/O hernia repair History of carpal tunnel release History of total abdominal hysterectomy Hx laparoscopic cholecystectomy Family History Other Cancer Diabetes Stroke Social History (Updated 12/25/21 @ 10:37 by Kavita Mitchell RN) Smoking Status: Current every day smoker tobacco type: cigarettes packs per day: 1 alcohol intake: current substance use type: denies use current occupational status: other Travel in the last 8 weeks: None Review of Systems Review of Systems Review of systems:: pertinent systems reviewed and negative unless documented below Review of systems (narrative): NeckReview of Systems: General: No recent weight changes, no fever, no sleep disturbances Respiratory: No cough, no shortness of air, no recurring pulmonary infections Cardiovascular/peripheral vascular: No chest pain, no palpitations, no edema, no shortness of breath Gastrointestinal: No new onset incontinence, normal bowel movements reported Genitourinary: No new onset incontinence Musculoskeletal: Pain, low back pain, bilateral leg pain Psychiatric: [Normal mood/affect] Neurological: [Denies weakness in extremities], [denies balance issues] Meds Home Medications and Allergies Home Medications Medication Instructions Recorded Confirmed Type albuterol sulfate 90 mcg/actuation 2 puff inha
== END ==
PROVIDERS: PCP Physician Assistant; Visit Provider Nurse Practitioner Family
DX: M54.2 Cervicalgia (principal); M54.50 Low back pain, unspecified; M79.604 Pain in right leg; M79.605 Pain in left leg
CPT/HCPCS: 99202; G0463

== ENCOUNTER → 2022-01-21 14:13 | Outpatient (CLI) | payer OTHER, SELFPAY ==
--- NOTE | 2022-01-21 14:13 | MM_ITS ---
PROCEDURE INFORMATION: Exam: US Right Breast, Complete MG Bilateral Diagnostic Breast Tomosynthesis Exam date and time: 01/21/2022 2:16 PM Age: 41 years old Clinical indication: Concern for right breast lump. Maternal and paternal aunts and cousins had breast cancer. Personal history of cervical cancer. TECHNIQUE: Imaging protocol: Complete ultrasound of all four quadrants of the Right breast and the retroareolar regions, including ultrasound of the axilla when performed. Bilateral Diagnostic tomosynthesis and 2D mammography including computer-aided detection (CAD) when performed. Unilateral or bilateral exam. Triangular marker placed on area of concern with spot compression added. COMPARISON: MG MAMMO SCREENING BILATERAL INCL CAD 02/14/2021 1:30 PM FINDINGS: MAMMOGRAPHY: Breast composition: There are scattered areas of fibroglandular density. Mass: No suspicious mass. Architectural distortion: None. Calcifications: No suspicious calcifications. Asymmetric density: None. Skin thickening: None. Axillary adenopathy: Bilateral dense abnormal appearing axillary lymph nodes, the most inferior node on the right is seen in the prior mammogram and appears unchanged. Other: No focal findings related to the area of palpable concern in the right upper outer quadrant. ULTRASOUND: Right sonography, all 4 quadrants, retroareolar and axilla. At the palpable concern, at 12 o'clock 10 cm from the nipple. No cystic or solid or non masslike sonographic finding demonstrated. Minimal ductal ectasia with no related debris, noted in the lower outer quadrant. In the right axilla, abnormal appearing axillary node with thickened cortex measuring 0.4 cm and compressed central fatty hilum IMPRESSION: See comment No mammographic or sonographic findings at the area of palpable concern in the right upper outer quadrant.Further evaluation of a palpable abnormality should be based on clinical grounds regardless of radiographic findings or lack thereof. Abnormal appearing bilateral axillary lymph nodes and mammography and abnormal appearing right axillary node confirmed on sonography (the most inferior node on the right is seen on the prior mammogram from 02/14/2021 appears unchanged. Correlate clinically, and if clinically indicated, follow-up CT or fine-needle aspiration could be considered. Annual screening mammogram recommended unless otherwise clinically indicated. ASSESSMENT: BI-RADS Category 2: Benign
== END ==
PROVIDERS: PCP Physician Assistant; Visit Provider Physician Assistant
DX: N63.10 Unspecified lump in the right breast, unspecified quadrant (principal)
CPT/HCPCS: 76641; 77062; 77066; G0279

== ENCOUNTER → 2022-01-23 13:21 | Outpatient (CLI) | payer OTHER, SELFPAY ==
--- NOTE | 2022-01-23 13:25 | XR_ITS ---
FINAL REPORT CLINICAL HISTORY: foot pain FINDINGS: 3 views of the right foot were obtained. There is no acute fracture or dislocation. There is a posterior calcaneal spur. There is postoperative change in the superior calcaneal body. The joint spaces are intact. The soft tissues are unremarkable. IMPRESSION: No acute process. Reviewed, Interpreted and Dictated by Jose Hoff III, MD Transcribed by Crow Brewer Authenticated and . [facility]
--- NOTE | 2022-01-23 13:25 | XR_ITS ---
FINAL REPORT CLINICAL HISTORY: foot pain FINDINGS: 3 views of the left foot were obtained. There is no acute fracture or dislocation. There are mild degenerative changes. There is a posterior calcaneal spur. The soft tissues are unremarkable. IMPRESSION: No acute process. Reviewed, Interpreted and Dictated by Jose Hoff III, MD Transcribed by Crow Brewer Authenticated and [facility]
== END ==
PROVIDERS: PCP Physician Assistant; Visit Provider Podiatrist
DX: M79.672 Pain in left foot (principal); M79.671 Pain in right foot
CPT/HCPCS: 73630

== ENCOUNTER → 2022-01-26 11:19 | Outpatient (CLI) | payer OTHER, SELFPAY ==
--- NOTE | 2022-01-26 11:24 | XR_ITS ---
FINAL REPORT CLINICAL HISTORY: Left ankle pain FINDINGS: LEFT ANKLE: Three weight-bearing views of the left ankle were obtained. There is no acute fracture or dislocation. There is a mild Basilio deformity. The joint spaces and mortise are intact. There is no soft tissue abnormality. IMPRESSION: No acute process. Reviewed, Interpreted and Dictated by David Vyas MD Transcribed by Crow Brewer Authenticated and [facility]
--- NOTE | 2022-01-26 11:24 | XR_ITS ---
FINAL REPORT CLINICAL HISTORY: right ankle pain FINDINGS: RIGHT ANKLE: Three views of the right ankle were obtained. There is a tendon anchor in the lateral calcaneus. There is a minimal Basilio deformity. There is no acute fracture or dislocation. The joint spaces and mortise are intact. There is no soft tissue abnormality. IMPRESSION: No acute process. Reviewed, Interpreted and Dictated by David Vyas MD Transcribed by Crow Brewer Authenticated and [facility]
== END ==
PROVIDERS: PCP Physician Assistant; Visit Provider Podiatrist
DX: M25.572 Pain in left ankle and joints of left foot (principal); M25.571 Pain in right ankle and joints of right foot
CPT/HCPCS: 73610

== ENCOUNTER → 2022-02-06 11:46 | Outpatient (CLI) | payer OTHER, SELFPAY ==
[2022-02-06 12:06] LABS: Basophils # 0.1 K/mm3 (0-0.2); Basophils % 1.5 % (0.1-2.0); Eosinophils # 0.2 K/mm3 (0.0-0.4); Eosinophils % 3.1 % (0.1-12.0); Hematocrit 43.4 % (37.0-47.0); Hemoglobin 13.9 g/dL (12.2-16.2); Lymphocytes # 2.6 K/mm3 (0.7-4.5); Lymphocytes % 33.1 % (10-50); Mean Corpuscular HGB Conc 31.9 g/dL (31.8-35.4); Mean Platelet Volume 8.9 fl (7.4-10.4); Monocytes # 0.4 K/mm3 (0.1-1.0); Monocytes % 4.7 % (1.7-9.3); Neutrophils # 4.5 K/mm3 (1.8-7.8); Neutrophils % 57.5 % (37.0-80.0); Platelet Count 323 K/mm3 (142-424); Red Blood Count 4.47 M/mm3 (4.20-5.40); Red Cell Distribution Width 12.6 % (11.5-17.5); White Blood Count 7.8 K/mm3 (4.8-10.8)
[2022-02-12 04:52] LABS: D001-IgE D pteronyssinus 0.13 kU/L (Class 0/I); D002-IgE D farinae <0.10 kU/L (Class 0); E001-IgE Cat Dander <0.10 kU/L (Class 0); E005-IgE Dog Dander <0.10 kU/L (Class 0); E072-IgE Mouse Urine <0.10 kU/L (Class 0); G002-IgE Bermuda Grass <0.10 kU/L (Class 0); G006-IgE Timothy Grass <0.10 kU/L (Class 0); I006-IgE Cockroach, German <0.10 kU/L (Class 0); Immunoglobulin E, Total 1610 IU/mL (6-495); M001-IgE Penicillium chrysogen 0.34 kU/L (Class I); M002-IgE Cladosporium herbarum <0.10 kU/L (Class 0); M003-IgE Aspergillus fumigatus <0.10 kU/L (Class 0); M006-IgE Alternaria alternata <0.10 kU/L (Class 0); T001-IgE Maple/Box Elder <0.10 kU/L (Class 0); T003-IgE Common Silver Birch <0.10 kU/L (Class 0); T006-IgE Cedar, Mountain <0.10 kU/L (Class 0); T007-IgE Oak, White <0.10 kU/L (Class 0); T008-IgE Elm, American <0.10 kU/L (Class 0); T010-IgE Walnut <0.10 kU/L (Class 0); T011-IgE Maple Leaf Sycamore <0.10 kU/L (Class 0); T014-IgE Cottonwood <0.10 kU/L (Class 0); T015-IgE Ash, White <0.10 kU/L (Class 0); T022-IgE Pecan, Hickory <0.10 kU/L (Class 0); T070-IgE White Mulberry <0.10 kU/L (Class 0); W001-IgE Ragweed, Short <0.10 kU/L (Class 0); W011-IgE Thistle, Russian <0.10 kU/L (Class 0); W014-IgE Pigweed, Common <0.10 kU/L (Class 0); W018-IgE Sheep Sorrel <0.10 kU/L (Class 0)
== END ==
PROVIDERS: PCP Physician Assistant; Visit Provider Internal Medicine Pulmonary Disease
DX: J45.909 Unspecified asthma, uncomplicated (principal)
CPT/HCPCS: 36415; 82785; 85025; 86003

== ENCOUNTER 2022-02-19 16:59 | Emergency (ER) | payer OTHER, SELFPAY ==
[2022-02-19 17:02] VITALS: BP 105/62; PULSE 69; RESP 16; TEMP 36.8; O2SAT 100; BMI 44.4
--- NOTE | 2022-02-19 17:08 | CT_ITS ---
PROCEDURE INFORMATION: Exam: CT Abdomen And Pelvis With Contrast Exam date and time: 02/19/2022 6:39 PM Age: 42 years old Clinical indication: Abdominal pain; Generalized; Prior surgery; Patient HX: Patient is due to have another hernia repair after losing 60 pounds per her gastro- doc; Additional info: Post-op pain TECHNIQUE: Imaging protocol: Computed tomography of the abdomen and pelvis with contrast. Radiation optimization: All CT scans at this facility use at least one of these dose optimization techniques: automated exposure control; mA and/or kV adjustment per patient size (includes targeted exams where dose is matched to clinical indication); or iterative reconstruction. Contrast material: ISOVUE; Contrast volume: 75 ml; Contrast route: IV; COMPARISON: CT ABDOMEN PELVIS W CON 12/15/2021 11:16 PM FINDINGS: Lungs: Mild scarring and atelectasis in the lower lungs. Diaphragm: Tiny hiatal hernia. Liver: Nonspecific low-attenuation right hepatic lesions measuring 2.8 cm and 3.2 cm on images 30 and 35, unchanged. Gallbladder and bile ducts: Gallbladder is absent. Pancreas: Normal. No ductal dilation. Spleen: Normal. No splenomegaly. Adrenal glands: Normal. No mass. Kidneys and ureters: Normal. No hydronephrosis. Stomach and bowel: Broad-based anterior abdominal wall hernia containing segments of small bowel without evidence of incarceration. The majority of the colon is collapsed, which is a nonspecific appearance that can correlate with colitis in the appropriate clinical setting. Appendix: Unremarkable appendix. Intraperitoneal space: Unremarkable. No free air. No significant fluid collection. Vasculature: Unremarkable. No abdominal aortic aneurysm. Lymph nodes: Unremarkable. No enlarged lymph nodes. Urinary bladder: Unremarkable as visualized. Reproductive: Status post hysterectomy. Decreased size of previously seen left ovarian cyst. Bones/joints: Old right rib fractures. Soft tissues: There is a healed anterior abdominal wall incision. IMPRESSION: The majority of the colon is collapsed, which is a nonspecific appearance that can correlate with colitis in the appropriate clinical setting.
--- NOTE | 2022-02-19 17:09 | HMH.EDGENADL ---
Discharge Plan Disposition Patient Disposition: Home, Self-Care Condition: Good Prescriptions Prescriptions: New dicyclomine 20 mg tablet 20 mg PO BID Qty: 30 0RF No Action Lastacaft 0.25 % drops 1 drp ophthalmic (eye) DAILY PRN (Reason: allergy symptoms) Qty: 3 0RF ondansetron 4 mg tablet,disintegrating 4 mg PO Q8HP PRN (Reason: Nausea) Qty: 30 2RF albuterol sulfate [ProAir HFA] 90 mcg/actuation HFA aerosol inhaler 2 puff inhalation Q4-6H PRN (Reason: shortness of breath or wheezing) Qty: 8.5 5RF trazodone 50 mg tablet 50 mg PO HS PRN (Reason: insomnia) Qty: 90 1RF oxycodone-acetaminophen 7.5-325 mg tablet 1 tab PO QID Qty: 120 0RF pregabalin [Lyrica] 150 mg capsule 150 mg PO TID Qty: 90 0RF clonidine HCl 0.1 mg tablet 0.1 mg PO BID Rx Instructions: Take 1 tablet by oral route BID if blood pressure goes over 160/90 clobetasol 0.05 % cream 1 applic topical BID aspirin [Adult Aspirin Regimen] 81 mg tablet,delayed release (DR/EC) 81 mg PO DAILY losartan-hydrochlorothiazide 100-25 mg tablet 1 tab PO DAILY methocarbamol 750 mg tablet 750 mg PO QID methotrexate sodium 2.5 mg tablet 20 mg PO WEEKLY ropinirole 0.25 mg tablet 0.25 mg PO HS Rx Instructions: administer 1-3 hours before bedtime cyanocobalamin (vitamin B-12) 1,000 mcg/mL solution 1,000 mcg IM QMONTH hydroxychloroquine 200 mg tablet 200 mg PO BID ketoconazole 2 % cream 1 applic topical BID fluoxetine 20 mg capsule 20 mg PO DAILY Instant API 1.5 billion cell capsule 1 cap PO DAILY Anoro Ellipta 62.5-25 mcg/actuation blister with device 1 inh inhalation DAILY Enbrel 25 mg/0.5 mL solution 50 mg SQ WEEKLY montelukast 10 mg tablet 10 mg PO DAILY fluticasone propionate [Flonase Allergy Relief] 50 mcg/actuation spray,suspension 2 spray intranasal DAILY Rx Instructions: administer into each nostril peg 3350-electrolytes [GaviLyte-G] 236-22.74-6.74 -5.86 gram recon soln 240 ml PO Q10M Rx Instructions: until fecal effluent is clear- Follow mailed instructions azelastine 205.5 mcg (0.15 %) spray,non-aerosol 2 spray intranasal HS Rx Instructions: administer into each nostril Dulera 100-5 mcg/actuation HFA aerosol inhaler 2 puff inhalation BID Referrals Follow up/Referrals: Provider,Referral, MD [Primary Care Provider] - See instructions Clinical Impressions Clinical Impression: Abdominal pain Instructions Patient Instructions: DI for Acute Abdominal Pain Discharge ED Provider: Anatoliy Martinez General Adult HPI General Chief complaint: Abdominal Pain Stated complaint: ABD PAIN Time Seen by Provider: 02/19/22 17:01 History of Present Illness HPI narrative: 42-year-old female with past medical history of umbilical hernia status postrepair approximately 4 years ago in [place], also had partial hysterectomy, cholecystectomy in the past. She presents with few days of lower abdominal pain, worse with movement or palpation of the area, associated with mild nausea. She denies fevers, chills, diarrhea, states she is able to have bowel movements every 1 to 2 days and is passing gas. She has not had overt vomiting, denies any dysuria, vaginal discharge or bleeding, has not had any treatments prior to this visit Related Data Home Medications Medication Instructions Recorded Confirmed Lactobacills gasseri-Bifidobac 1 cap PO DAILY SUPPLIMENT 12/25/21 02/13/22 bifidum,longum 1.5 billion cell capsule (Instant API) aspirin 81 mg tablet,delayed 81 mg PO DAILY Blood thinner 12/25/21 02/13/22 release (Adult Aspirin Regimen) clobetasol 0.05 % topical cream 1 applic topical BID Skin condition 12/25/21 02/13/22 clonidine HCl 0.1 mg tablet 0.1 mg PO BID BLOOD PRESSURE 12/25/21 02/13/22 cyanocobalamin (vitamin B-12) 1,000 mcg IM QMONTH SUPPLIMENT
[2022-02-19 17:45] VITALS: BP 116/52; PULSE 60; RESP 22; O2SAT 100
[2022-02-19 18:00] VITALS: BP 105/62; PULSE 66; RESP 20; O2SAT 100
[2022-02-19 18:00] LABS: Basophils # 0.1 K/mm3 (0-0.2); Basophils % 1.3 % (0.1-2.0); Eosinophils # 0.2 K/mm3 (0.0-0.4); Eosinophils % 1.8 % (0.1-12.0); Hematocrit 43.4 % (37.0-47.0); Hemoglobin 14.1 g/dL (12.2-16.2); Lymphocytes # 2.6 K/mm3 (0.7-4.5); Lymphocytes % 27.2 % (10-50); Mean Corpuscular HGB Conc 32.5 g/dL (31.8-35.4); Mean Corpuscular Hemoglobin 30.5 pg (27.0-31.2); Mean Corpuscular Volume 93.9 fl (81-99); Mean Platelet Volume 8.9 fl (7.4-10.4); Monocytes # 0.6 K/mm3 (0.1-1.0); Neutrophils # 6.1 K/mm3 (1.8-7.8); Neutrophils % 63.7 % (37.0-80.0); Platelet Count 332 K/mm3 (142-424); Red Blood Count 4.63 M/mm3 (4.20-5.40); Red Cell Distribution Width 13.1 % (11.5-17.5); White Blood Count 9.6 K/mm3 (4.8-10.8)
[2022-02-19 18:03] LABS: Blood Urea Nitrogen 15 mg/dl (7-17); Chloride 106 mmol/L (98-107); Creatinine Clearance Estimated 69 mL/min (50-200); Estimated Glomerular Filt Rate 61 ml/min (>60); GFR (African American) 74 ML/MIN (>60); Potassium 3.6 mmoL/L (3.5-5.1); Sodium 141 mmol/L (136-145)
[2022-02-19 18:04] LABS: Alanine Aminotransferase 13 U/L (12-78); Albumin Level 4.2 g/dl (3.5-5.0); Albumin/Globulin Ratio 1.5 (1.1-1.8); Alkaline Phosphatase 67 U/L (38-126); Anion Gap 9.6 mEq/L (5-15); Aspartate Amino Transferase 24 U/L (14-36); Bilirubin,Total 0.5 mg/dl (0.2-1.3); Carbon Dioxide 29 mmol/L (22.0-30.0); Globulin 2.8 g/dL (1.3-3.2); Glucose 81 mg/dl (74-100); Lipase 217 U/L (23-300)
[2022-02-19 18:15] LABS: HCG Qualitative, Serum Negative (Negative)
--- NOTE | 2022-02-19 19:39 | PC.NURSE ---
shift change report given to geetha worley and [facility]
[2022-02-19 20:02] VITALS: BP 104/72; PULSE 61; RESP 16; TEMP 36.8; O2SAT 100
== END 2022-02-19 20:04 | disposition home or self-care (01) ==
PROVIDERS: Emergency Provider Emergency Medicine
DX: R10.9 Unspecified abdominal pain (principal); Z90.711 Acquired absence of uterus with remaining cervical stump; Z79.899 Other long term (current) drug therapy; Z88.6 Allergy status to analgesic agent; Z88.5 Allergy status to narcotic agent; J44.9 Chronic obstructive pulmonary disease, unspecified; I10 Essential (primary) hypertension; F41.9 Anxiety disorder, unspecified; F32.A Depression, unspecified; Z80.9 Family history of malignant neoplasm, unspecified; Z83.3 Family history of diabetes mellitus; Z82.3 Family history of stroke
CPT/HCPCS: 74177; 80053; 83690; 84703; 85025; 96365; 96375; 99284; J2405; Q9967

== ENCOUNTER → 2022-03-03 14:08 | Outpatient (CLI) | payer OTHER, SELFPAY ==
--- NOTE | 2022-03-03 14:08 | MR_ITS ---
FINAL REPORT CLINICAL HISTORY: .BILATERAL LOWER LEG WEAKNESS. BURNING SENSATION LOWER LEGS TO FEET. RIGHT HIP AND LEG PAIN TO KNEE. NO INJURY OR TRAUMA. FINDINGS: MRI LUMBAR SPINE W/O CONTRAST Multiplanar MR imaging of the lumbar spine was performed without contrast. There is motion on many of the images which decreases sensitivity of the exam. On the sagittal T2-weighted images, disc degeneration is seen at L4-5. The vertebral alignment is normal. There is no evidence of fracture. The conus has an unremarkable appearance. T11-12: No significant central canal stenosis or neural foraminal narrowing. T12-L1: No significant central canal stenosis or neural foraminal narrowing. L1-2: No significant central canal stenosis or neural foraminal narrowing. L2-3: An annular disc bulge is present. L3-4: An annular disc bulge is present. L4-5: An annular disc bulge is present. There is a central and right paracentral disc protrusion which contacts the right L5 nerve root. There is mild right neural foraminal narrowing. L5-S1: An annular disc bulge with facet arthropathy is present. IMPRESSION: Disc degeneration at L4-5 with a central and right paracentral disc protrusion which contacts the right L5 nerve root and mild right neural foraminal narrowing. Reviewed, Interpreted and Dictated by Jose Hoff III, MD Transcribed by Cindy Ely Authenticated and [facility]
== END ==
PROVIDERS: PCP Physician Assistant; Visit Provider Physician Assistant
DX: M51.26 Other intervertebral disc displacement, lumbar region (principal)
CPT/HCPCS: 72148; 76376

== ENCOUNTER 2022-03-04 10:21 | Day surgery (SDC) | payer OTHER, SELFPAY ==
[2022-02-13 11:01] VITALS: BMI 47.2
[2022-03-04 11:35] VITALS: BP 131/59; PULSE 68; RESP 16; TEMP 36.5; O2SAT 99
--- NOTE | 2022-03-04 12:53 | P.PN_ITS ---
[facility] Disclaimer: The information contained in this section may have been updated after the patient was seen, as this information can be updated by other users. Medical History Abdominal pain Allergic rhinitis Anxiety Asthma COPD (chronic obstructive pulmonary disease) Depression Dyspnea on exertion HTN (hypertension) Hx of hypotension Ovarian cyst Smoking greater than 30 pack years Tobacco abuse Vaginal mass Vaginal pain Surgical History H/O dilation and curettage H/O hernia repair History of carpal tunnel release History of tonsillectomy History of total abdominal hysterectomy Hx laparoscopic cholecystectomy Hx of hernia repair Family History Other Cancer Diabetes Stroke Social History Smoking Status: Current every day smoker tobacco type: cigarettes packs per day: 1 alcohol intake: current substance use type: denies use current occupational status: other Travel in the last 8 weeks: None [facility] Anesthesia Checklist Patient Identification Patient Identification: Arm Band and Verbal (Name & ) Structural Data Admitted From: Home Planned Operative Procedure/s: Colonoscopy Consent for Planned Operative Procedure(s) Verified: Yes NPO Status Verified Time NPO: 00:00 Airway Assessment C-Spine Mobility Assessed: Yes TMJ Mobility Assessed: Yes Dentition: Poor Dentition Neurological Assessment Level of Consciousness: Awake Hx Seizures: No Numbness or tingling in extremities: No Anesthesia Plan Anesthesia Risk discussed: Yes Anesthesia Plan: Verified ASA Class: III Anesthesia Type: MAC
[2022-03-04 13:03] VITALS: O2SAT 92
[2022-03-04 13:23] VITALS: BP 81/62; PULSE 89; RESP 15; TEMP 36.7; O2SAT 93
--- NOTE | 2022-03-04 13:24 | HMH.SCOPE ---
Procedure: Date: 03/04/22 Patient Date of :: 1980 Procedure Performed:: Colonoscopy Indications:: Chronic intermittent blood per rectum. There is a family history of colon cancer in a paternal uncle. Performing Provider:: Felipe Hsu MD Referring Provider:: Maricarmen Kaye APRN Sedation:: See RN records Procedure:: After placing the patient in the left lateral decubitus position, the colonoscopy was gently inserted into the rectum and under direct visualization advanced to the cecum which was identified by transillumination in the right lower quadrant, identification of the ileocecal valve, appendiceal orifice, and cecal strap. Color, texture, mucosa, and anatomy of the colon were carefully examined with the scope. Findings:: Anal canal: normal Rectum: Internal hemorrhoids. Diminutive polyp. Removed with cold forceps Sigmoid colon: Sessile polyp 5 mm in size. Removed with cold snare polypectomy. Fair preparation Descending colon: Fair preparation Splenic flexure: normal Transverse colon: normal without polyps or inflammatory changes Hepatic flexure: normal Ascending colon: normal without polyps or inflammatory changes Cecum: normal Terminal ileum: not visualized Impression: Polyp of rectum and sigmoid colon Fair bowel preparation Internal hemorrhoids Recommendations:: Await pathology results Can use topical creams and suppository as needed for hemorrhoids Repeat colonoscopy in 3 years Complications:: None Estimated blood obtained (mL): 0
[2022-03-04 13:33] VITALS: BP 111/71; PULSE 83; RESP 18; O2SAT 94
[2022-03-04 13:43] VITALS: BP 130/85; PULSE 80; RESP 18; O2SAT 95
[2022-03-04 13:53] VITALS: BP 113/75; PULSE 61; RESP 18; O2SAT 95
== END 2022-03-04 13:53 | disposition home or self-care (01) ==
PROVIDERS: PCP Physician Assistant; Visit Provider Internal Medicine
PROC: 0DJD8ZZ Inspection of Lower Intestinal Tract, Via Natural or Artificial Opening Endoscopic (ICD-10-PCS; CPT 45378; principal; 2022-03-04 12:00)
DX: K62.5 Hemorrhage of anus and rectum (principal); K64.8 Other hemorrhoids; K63.5 Polyp of colon; Z80.0 Family history of malignant neoplasm of digestive organs; F17.210 Nicotine dependence, cigarettes, uncomplicated
CPT/HCPCS: 45385; J2704

== ENCOUNTER 2022-03-14 13:07 | Emergency (ER) | payer OTHER, SELFPAY ==
[2022-03-14 13:20] VITALS: BP 141/100; PULSE 80; RESP 22; TEMP 36.7; O2SAT 99; BMI 46.7
--- NOTE | 2022-03-14 13:39 | EXP.UTC ---
Discharge Plan Disposition Patient Disposition: Home, Self-Care Condition: Good Prescriptions Prescriptions: New benzonatate 100 mg capsule 100 mg PO TID PRN (Reason: cough) Qty: 30 0RF No Action Lastacaft 0.25 % drops 1 drp ophthalmic (eye) DAILY PRN (Reason: allergy symptoms) Qty: 3 0RF ondansetron 4 mg tablet,disintegrating 4 mg PO Q8HP PRN (Reason: Nausea) Qty: 30 2RF albuterol sulfate [ProAir HFA] 90 mcg/actuation HFA aerosol inhaler 2 puff inhalation Q4-6H PRN (Reason: shortness of breath or wheezing) Qty: 8.5 5RF trazodone 50 mg tablet 50 mg PO HS PRN (Reason: insomnia) Qty: 90 1RF pregabalin [Lyrica] 150 mg capsule 150 mg PO TID Qty: 90 0RF clonidine HCl 0.1 mg tablet 0.1 mg PO BID Qty: 180 0RF Rx Instructions: Take 1 tablet by oral route BID if blood pressure goes over 160/90 losartan-hydrochlorothiazide 100-25 mg tablet 1 tab PO DAILY Qty: 90 0RF oxycodone-acetaminophen 7.5-325 mg tablet 1 tab PO QID Qty: 120 0RF clobetasol 0.05 % cream 1 applic topical BID aspirin [Adult Aspirin Regimen] 81 mg tablet,delayed release (DR/EC) 81 mg PO DAILY methocarbamol 750 mg tablet 750 mg PO QID methotrexate sodium 2.5 mg tablet 20 mg PO WEEKLY ropinirole 0.25 mg tablet 0.25 mg PO HS Rx Instructions: administer 1-3 hours before bedtime cyanocobalamin (vitamin B-12) 1,000 mcg/mL solution 1,000 mcg IM QMONTH hydroxychloroquine 200 mg tablet 200 mg PO BID ketoconazole 2 % cream 1 applic topical BID fluoxetine 20 mg capsule 20 mg PO DAILY Telderi 1.5 billion cell capsule 1 cap PO DAILY Anoro Ellipta 62.5-25 mcg/actuation blister with device 1 inh inhalation DAILY Enbrel 25 mg/0.5 mL solution 50 mg SQ WEEKLY montelukast 10 mg tablet 10 mg PO DAILY fluticasone propionate [Flonase Allergy Relief] 50 mcg/actuation spray,suspension 2 spray intranasal DAILY Rx Instructions: administer into each nostril peg 3350-electrolytes [GaviLyte-G] 236-22.74-6.74 -5.86 gram recon soln 240 ml PO Q10M Rx Instructions: until fecal effluent is clear- Follow mailed instructions azelastine 205.5 mcg (0.15 %) spray,non-aerosol 2 spray intranasal HS Rx Instructions: administer into each nostril Dulera 100-5 mcg/actuation HFA aerosol inhaler 2 puff inhalation BID dicyclomine 20 mg tablet 20 mg PO BID Referrals Follow up/Referrals: Maricarmen Kaye PA [Primary Care Provider] - See instructions Activity Restrictions/Add. Instructions Additional Instructions/Restrictions: *Monitor Temp, Over the counter Motrin or Tylenol as directed/as needed Tylenol every 4 hours and Motrin every 6 hours (as long as your family doctor has told you that you can take it) for fever or pain. and straight to ER if unable to lower temp less than 101.0 after medication given *Warm salt water gargles may help to soothe the throat *Throat Lozenges? *Warm fluids like tea with honey may help to soothe the throat? *Sleep elevated *Humidifier/Vaporizer *Flonase 2 sprays in each nostril daily but be aware that it may take 2-3 days before you notice improvement *Bromfed may cause drowsiness. Know how it effects you (your child) before driving, caring for small child, or sending your child to school. Not other antihistamines/allergy medications while taking bromfed Your throat swab was sent for culture. Those results are typically sent to your primary care. Be sure to follow up in 2-3 days with your family doctor/primary care physician if no improvement so they can review those result and treat if necessary. If you don?t have a primary care doctor, I recommend you get one but in the mean time, you will have to return to a walk in clinic Follow up IMMEDIATELY for new or worsening symptoms or no Noticeable improvement over the next 48-72 hours.
[2022-03-14 13:48] LABS: UTC Influenza A Antigen Negative (Negative); UTC Strep Screen (Rapid) Negative (Negative)
[2022-03-14 13:49] LABS: UTC Influenza B Antigen Negative (Negative)
[2022-03-14 13:54] VITALS: BP 141/100; PULSE 80; RESP 22; TEMP 36.7; O2SAT 99
== END 2022-03-14 14:04 | disposition home or self-care (01) ==
PROVIDERS: Emergency Provider Nurse Practitioner; PCP Physician Assistant
DX: J06.9 Acute upper respiratory infection, unspecified (principal)
CPT/HCPCS: 87804; 87880; 99212; G0463

== ENCOUNTER 2022-03-21 12:37 | Emergency (ER) | payer OTHER, SELFPAY ==
--- NOTE | 2022-03-21 14:21 | EXP.UTC ---
Discharge Plan Disposition Patient Disposition: Home, Self-Care Condition: Good Prescriptions Prescriptions: New cephalexin 500 mg capsule 500 mg PO QID Qty: 40 0RF methylprednisolone 4 mg Tablets,Dose Pack 4 mg PO DIRECTED Qty: 21 0RF guaifenesin [Mucinex] 600 mg tablet extended release 12hr 600 - 1,200 mg PO BIDP PRN (Reason: Congestion) Qty: 30 0RF promethazine-DM 6.25-15 mg/5 mL Syrup 5 ml PO Q6H PRN (Reason: Cough) Qty: 240 0RF No Action Lastacaft 0.25 % drops 1 drp ophthalmic (eye) DAILY PRN (Reason: allergy symptoms) Qty: 3 0RF ondansetron 4 mg tablet,disintegrating 4 mg PO Q8HP PRN (Reason: Nausea) Qty: 30 2RF albuterol sulfate [ProAir HFA] 90 mcg/actuation HFA aerosol inhaler 2 puff inhalation Q4-6H PRN (Reason: shortness of breath or wheezing) Qty: 8.5 5RF trazodone 50 mg tablet 50 mg PO HS PRN (Reason: insomnia) Qty: 90 1RF pregabalin [Lyrica] 150 mg capsule 150 mg PO TID Qty: 90 0RF clonidine HCl 0.1 mg tablet 0.1 mg PO BID Qty: 180 0RF Rx Instructions: Take 1 tablet by oral route BID if blood pressure goes over 160/90 losartan-hydrochlorothiazide 100-25 mg tablet 1 tab PO DAILY Qty: 90 0RF oxycodone-acetaminophen 7.5-325 mg tablet 1 tab PO QID Qty: 120 0RF clobetasol 0.05 % cream 1 applic topical BID aspirin [Adult Aspirin Regimen] 81 mg tablet,delayed release (DR/EC) 81 mg PO DAILY methocarbamol 750 mg tablet 750 mg PO QID methotrexate sodium 2.5 mg tablet 20 mg PO WEEKLY ropinirole 0.25 mg tablet 0.25 mg PO HS Rx Instructions: administer 1-3 hours before bedtime cyanocobalamin (vitamin B-12) 1,000 mcg/mL solution 1,000 mcg IM QMONTH hydroxychloroquine 200 mg tablet 200 mg PO BID ketoconazole 2 % cream 1 applic topical BID fluoxetine 20 mg capsule 20 mg PO DAILY [employer] 1.5 billion cell capsule 1 cap PO DAILY Anoro Ellipta 62.5-25 mcg/actuation blister with device 1 inh inhalation DAILY Enbrel 25 mg/0.5 mL solution 50 mg SQ WEEKLY montelukast 10 mg tablet 10 mg PO DAILY fluticasone propionate [Flonase Allergy Relief] 50 mcg/actuation spray,suspension 2 spray intranasal DAILY Rx Instructions: administer into each nostril peg 3350-electrolytes [GaviLyte-G] 236-22.74-6.74 -5.86 gram recon soln 240 ml PO Q10M Rx Instructions: until fecal effluent is clear- Follow mailed instructions azelastine 205.5 mcg (0.15 %) spray,non-aerosol 2 spray intranasal HS Rx Instructions: administer into each nostril Dulera 100-5 mcg/actuation HFA aerosol inhaler 2 puff inhalation BID dicyclomine 20 mg tablet 20 mg PO BID benzonatate 100 mg capsule 100 mg PO TID PRN (Reason: cough) Qty: 30 0RF Referrals Follow up/Referrals: Maricarmen Kaye PA [Primary Care Provider] - See instructions Activity Restrictions/Add. Instructions Additional Instructions/Restrictions: Drink plenty of fluids. Take tylenol or ibuprofen for pain or fever. Take the medications as directed. Follow up with your regular doctor. GO TO THE ER FOR ANY WORSENING SYMPTOMS Don't start the oral steroids until tomorrow, since you had the shot here today. The cough medication (promethazine dm) will make you drowsy, so don't drive or operate heavy machinery after taking it. Clinical Impressions Clinical Impression: Bronchitis, Acute viral syndrome Stand Alone Forms Stand Alone Forms: Work/School Release Instructions Patient Instructions: DI for Acute Bronchitis, DI for Viral Syndrome Discharge ED Provider: Garcia Tyler [facility] [place] Stated complaint: Whizzing,coughing Time Seen by Provider: 03/21/22 14:31 History of Present Illness Provider Complaint: She states that for the past 2 days she has had body aches, chills, fever, body aches, chest condition, and malaise.
--- NOTE | 2022-03-21 14:28 | XR_ITS ---
PROCEDURE INFORMATION: Exam: XR Chest Exam date and time: 03/21/2022 2:26 PM Age: 42 years old Clinical indication: Shortness of breath; Additional info: Cough TECHNIQUE: Imaging protocol: Radiologic exam of the chest. Views: 2 views. COMPARISON: CT ABDOMEN PELVIS W CON 02/19/2022 6:39 PM FINDINGS: Lungs: Unremarkable. No consolidation. Pleural spaces: Unremarkable. No pleural effusion. No pneumothorax. Heart/Mediastinum: Unremarkable. No cardiomegaly. Bones/joints: Unremarkable. IMPRESSION: No acute findings.
[2022-03-21 14:36] VITALS: BP 124/79; PULSE 76; RESP 18; TEMP 36.9; O2SAT 99; BMI 44.5
[2022-03-21 15:56] VITALS: BP 124/79; PULSE 76; RESP 18; TEMP 36.9
[2022-03-21 16:14] LABS: Adenovirus,PCR Not Detected (NotDetected); Bordetella Pertussis Not Detected (NotDetected); Chlamydophila Pneumoniae, PCR Not Detected (NotDetected); Coronavirus 19, PCR Not Detected (NotDetected); Coronavirus 229E Not Detected (NotDetected); Coronavirus NL63 Not Detected (NotDetected); Coronavirus OC43 Not Detected (NotDetected); Coronovirus HKU1,PCR Not Detected (NotDetected); Human Metapneumovirus Not Detected (NotDetected); Influenza A, PCR Not Detected (NotDetected); Influenza AH1, 2009 Not Detected (NotDetected); Influenza AH1, PCR Not Detected (NotDetected); Influenza AH3,PCR Not Detected (NotDetected); Influenza B, PCR Not Detected (NotDetected); Mycoplasma Pneumoniae, PCR Not Detected (NotDetected); Parainfluenza 1, PCR Not Detected (NotDetected); Parainfluenza 2, PCR Not Detected (NotDetected); Parainfluenza 3, PCR Not Detected (NotDetected); Parainfluenza 4, PCR Not Detected (NotDetected); Respiratory Syncytial Virus Not Detected (NotDetected); Rhinovirus/Enterovirus Not Detected (NotDetected)
== END 2022-03-21 15:56 | disposition home or self-care (01) ==
PROVIDERS: Emergency Provider Nurse Practitioner Family; PCP Physician Assistant
DX: J20.9 Acute bronchitis, unspecified (principal)
CPT/HCPCS: 71046; 87581; 87632; 87798; 96372; 99212; C9803; G0463; U0003; U0005

== ENCOUNTER → 2022-04-07 14:01 | Outpatient (CLI) | payer OTHER, SELFPAY ==
--- NOTE | 2022-04-07 14:01 | CT_ITS ---
FINAL REPORT TECHNIQUE: Thin section axial images were obtained from the lung apices through the upper abdomen without contrast. This study was performed with techniques to keep radiation doses as low as reasonably achievable (ALARA). Individualized dose reduction techniques using automated exposure control or adjustment of mA and/or kV according to the patient's size were employed. CLINICAL HISTORY: bilateral axillary lymphadenopathy FINDINGS: There are bilateral enlarged axillary lymph nodes up to 3 cm on the right and 2.4 cm on the left. There is no mediastinal or hilar lymphadenopathy. There is no pleural or pericardial effusion. The lungs are clear. Limited, unenhanced evaluation of the upper abdomen is without acute abnormality. There is no acute osseous abnormality. IMPRESSION: Axillary lymphadenopathy, nonspecific, could be reactive. Neoplasm not excluded. Reviewed, Interpreted and Dictated by Fallon Solis MD Transcribed by Cindy Ely Authenticated and [facility]
== END ==
PROVIDERS: PCP Physician Assistant; Visit Provider Physician Assistant
DX: R59.0 Localized enlarged lymph nodes (principal)
CPT/HCPCS: 71250

== ENCOUNTER → 2022-04-13 14:00 | Outpatient (CLI) | payer OTHER, SELFPAY | PROVIDERS: PCP Physician Assistant; Visit Provider Physician Assistant | DX: R59.0 Localized enlarged lymph nodes (principal) ==

== ENCOUNTER → 2022-04-23 12:07 | Outpatient (CLI) | payer OTHER, SELFPAY | PROVIDERS: PCP Physician Assistant; Visit Provider Physician Assistant | DX: R06.81 Apnea, not elsewhere classified (principal); R06.83 Snoring | CPT/HCPCS: 95806 ==

== ENCOUNTER → 2022-04-29 10:00 | Outpatient (CLI) | payer OTHER, SELFPAY ==
[2022-04-29 16:36] LABS: Amphetamine/Metha Screen,Urine Negative ng/ml (<1000); Barbiturates Screen,Urine Negative ng/ml (<200); Benzodiazepines Screen,Urine Negative ng/ml (<200); Cannabinoid Screen,Urine Positive ng/ml (<50); Cocaine Screen,Urine Negative ng/ml (<300); Methadone Screen,Urine Negative ng/ml (<300); Opiate Screen,Urine Negative ng/ml (<300); Phencyclidine Screen,Urine Negative ng/ml (<25)
== END ==
PROVIDERS: PCP Physician Assistant; Visit Provider Physician Assistant
DX: G89.29 Other chronic pain (principal)
CPT/HCPCS: 80305

== ENCOUNTER → 2022-05-25 10:33 | Outpatient (CLI) | payer OTHER, SELFPAY | PROVIDERS: PCP Physician Assistant; Visit Provider Nurse Practitioner Family | DX: R06.09 Other forms of dyspnea (principal); R07.89 Other chest pain; I49.8 Other specified cardiac arrhythmias; I10 Essential (primary) hypertension; J44.9 Chronic obstructive pulmonary disease, unspecified; R60.9 Edema, unspecified; Z72.0 Tobacco use | CPT/HCPCS: 93270 ==

== ENCOUNTER → 2022-06-01 11:05 | Outpatient (CLI) | payer OTHER, SELFPAY ==
--- NOTE | 2022-06-01 11:05 | CA_ITS ---
FINAL REPORT TECHNIQUE: Ultrasound images of the deep venous system were obtained from the left groin to the calf veins. CLINICAL HISTORY: left lower leg pain x 2weeks, Lump in anterior left lower leg, Obesity, Back pain FINDINGS: The left lower extremity deep venous system is normally compressible. Normal flow is identified. There is a 1.5 cm mass in the anterior left lower leg which may represent lipoma. IMPRESSION: No evidence of left lower extremity DVT. 1.5 cm mass anterior left lower leg which may represent lipoma. Reviewed, Interpreted and Dictated by Jose Hoff III, MD Transcribed by Essie Camacho Authenticated and [facility]
== END ==
PROVIDERS: PCP Physician Assistant; Visit Provider Physician Assistant
DX: R60.0 Localized edema (principal); M79.662 Pain in left lower leg
CPT/HCPCS: 93971

== ENCOUNTER → 2022-06-02 12:55 | Outpatient (CLI) | payer OTHER, SELFPAY ==
--- NOTE | 2022-06-02 12:59 | CA_ITS ---
APPROVED REPORT EXAM: Comprehensive 2D, Doppler, and color-flow Echocardiogram Punch Press Operator: Gudelia Mcdonald CRT Ht: 5 ft 6 in Wt: 285lbs BSA: 2.32 BP: 140/70 mmHg Indications: Chest Pain, Shortness of Breath, Obesity, Peripheral Edema, Hypertension/HDD, smoker 2D Dimensions LVOT 1.93 cm (M/F) 1.5-2.5 LA Volume 39.10 mL LA Volume Index 16.40 mL/m2 (M/F) 16-34 M-Mode Dimensions RVDd 2.63 cm (0.9-2.6) LA Diam 4.07 cm (1.9-4.0) LVDd 6.20 cm (3.5-5.7) Ao Diam 3.73 cm (2.0-3.7) LVDs 4.16 cm (3.5-5.7) IVSd 1.44 cm (0.6-1.1) PWd 0.98 cm (0.6-1.1) EF (Teich) 60.40% FS 32.90% EDV (Teich) 194.00 mL TAPSE 2.74 (<1.7) ESV (Teich) 76.80 mL LV Diastology E Decel Time 150.00 (160-240 msec) E/A Ratio 1.61 MED E' 6.60 (< 7 cm/sec) MED A' 11.00 cm/s E'/MED E' Ratio 14.18 (>14) LAT E' 7.60 (<10 cm/sec) LAT A' 9.40 cm/s E/LAT E' Ratio 12.32 (>14) Aortic Valve AO Peak GR. 6.40 mmHg Mitral Valve MV A Velocity 58.00 (40-130 cm/s) E/A Ratio 1.61 MV Decel. Time 150.00 (160-240 ms) Pulmonary Valve PV Peak Velocity 110.00 (50-150 cm/s) Tricuspid Valve TR P. Velocity 201.00 cm/s RAP Estimate 10.00 mmHg RVSP 26.10 mmHg Left Ventricle Left atrium is normal size left ventricle is normal size, estimated ejection fraction 55% with no regional wall motion abnormality, diastolic parameters are within normal range. Right Ventricle Right atrium and right ventricular normal size and contractility. Aortic Valve Aortic valve is grossly normal there is no aortic stenosis or aortic insufficiency. Mitral Valve Mitral valve is grossly normal, there is trace mitral regurgitation. Tricuspid Valve Tricuspid grossly normal, there is trace tricuspid regurgitation, tricuspid regurgitation jet velocity is inadequate for calculation of the right ventricular systolic pressure. Pulmonic Valve Pulmonic valve is poorly visualized. Great Vessels Aortic root is normal size. Inferior vena cava normal size with normal inspiratory collapse. Pericardium No significant pericardial effusion noted. Conclusion 1. Normal left ventricular size preserved left ventricular systolic function, estimated ejection fraction 55% with no regional wall motion abnormality, diastolic parameters are within normal range. 2. Trace mitral and tricuspid regurgitation. 3. No significant pericardial effusion noted 4. Inferior vena cava normal size with normal inspiratory collapse. Electronically signed by : Jason Jo MD 06/02/2022 19:28:56
--- NOTE | 2022-06-02 15:05 | CA_ITS ---
APPROVED REPORT Exam: Exercise Treadmill Technologist: Jane Flores Ht: 5 ft 6 in Wt: 285 lbs BSA: 2.32 m2 HR: 75 bpm BP: 119/77 mmHg Indications: Chest pain, Shortness of Breath Medical History Medications: Aspirin,,,,, Lyrica,,,,, Flonase,,,,, Ropinirole,,,,, Albuterol,,,,, Dulera,,,,, Montelukast,,,,, DicyCLOMINE,,,,, Fluoxetine,,,,, Cyclobenzaprine,,,,, Losartan HCTZ,,,,, Trazodone,,,,, Stress Test Details Test: Monico HR Resting HR: 87 bpm Max Heart Rate (APMHR): 179 bpm Max HR Achieved: 171 bpm Target HR (85% APMHR): 152 bpm % of APMHR: 96 Recovery HR: 94 bpm BP Resting BP: 119.0/77.0 mmHg Max BP: 200.0/80.0 mmHg Recovery BP: 118.0/67.0 mmHg ECG Resting ECG: Normal sinus rhythm, rightward axis, PVCs Clinical Exercise duration: 04:19 min Highest Stage Achieved: Exercise capacity: 7.0 METs Stress ECG Conclusion Patient walked 4:19 into stage II Monico Protocol. Test stopped due to shortness of air, fatigue. Symptoms: Mild chest tightness during and after exercise. Arrhythmias/Ectopy: Frequent multifocal PVCs and occasional ventricular couplets, especially in recovery. ST-T Changes less than 1.5 mm Conclusion: normal GXT. GXT only(no imaging). Test Summary REST . . . . . . . Sitting REST . . . . . . . Standing REST 03:22 0.0 0.0 87 . 119/ 77 . . Stage 1 01:00 10.0 1.7 131 . . . . Stage 1 02:00 10.0 1.7 153 . . . . Stage 1 03:00 10.0 1.7 159 . 200/ 80 . . Stage 2 01:00 12.0 2.5 170 . . . . Stage 2 01:19 12.0 2.5 171 . . . Stop exercise at 04:19 RECOVERY 01:00 0.0 0.0 149 . . . . RECOVERY . . . . . . . chest pressure RECOVERY 02:00 0.0 0.0 88 . . . . RECOVERY 03:00 0.0 0.0 109 . 124/ 77 . . RECOVERY 04:00 0.0 0.0 97 . 124/ 77 . . RECOVERY 05:00 0.0 0.0 92 . 118/ 67 . . RECOVERY 05:21 0.0 0.0 91 . 118/ 67 . . Electronically signed by : Jason Jo MD 06/02/2022 18:59:47
== END ==
PROVIDERS: PCP Physician Assistant; Visit Provider Nurse Practitioner Family
DX: R06.09 Other forms of dyspnea (principal); R07.89 Other chest pain; I49.8 Other specified cardiac arrhythmias; I10 Essential (primary) hypertension; J44.9 Chronic obstructive pulmonary disease, unspecified; Z72.0 Tobacco use
CPT/HCPCS: 93017; 93306

== ENCOUNTER 2022-06-21 11:16 | Emergency (ER) | payer OTHER, SELFPAY ==
[2022-06-21 12:10] VITALS: BP 141/97; PULSE 85; RESP 20; TEMP 36.7; O2SAT 100; BMI 45.6
--- NOTE | 2022-06-21 12:46 | EXP.UTC ---
Discharge Plan Disposition Patient Disposition: Home, Self-Care Condition: Good Prescriptions Prescriptions: No Action Lastacaft 0.25 % drops 1 drp ophthalmic (eye) DAILY PRN (Reason: allergy symptoms) Qty: 3 0RF albuterol sulfate [ProAir HFA] 90 mcg/actuation HFA aerosol inhaler 2 puff inhalation Q4-6H PRN (Reason: shortness of breath or wheezing) Qty: 8.5 5RF clonidine HCl 0.1 mg tablet 0.1 mg PO BID Qty: 180 0RF Rx Instructions: Take 1 tablet by oral route BID if blood pressure goes over 160/90 losartan-hydrochlorothiazide 100-25 mg tablet 1 tab PO DAILY Qty: 90 0RF cefuroxime axetil 500 mg tablet 500 mg PO cyclobenzaprine 10 mg tablet 10 mg PO Q8H Qty: 90 2RF cyanocobalamin (vitamin B-12) 1,000 mcg/mL solution 1,000 mcg IM QMONTH Qty: 10 1RF desvenlafaxine succinate [Pristiq] 50 mg tablet extended release 24 hr 50 mg PO DAILY Qty: 30 1RF dicyclomine 20 mg tablet 20 mg PO BID Qty: 60 0RF ondansetron 4 mg tablet,disintegrating See Rx Instructions .ROUTE .COMPLEX Qty: 20 0RF Dose Instruction: DISSOLVE 1 TABLET ON THE TONGUE EVERY 8 HOURS NEEDED FOR NAUSEA Rx Instructions: DISSOLVE 1 TABLET ON THE TONGUE EVERY 8 HOURS NEEDED FOR NAUSEA clobetasol 0.05 % cream 1 applic topical BID aspirin [Adult Aspirin Regimen] 81 mg tablet,delayed release (DR/EC) 81 mg PO DAILY methocarbamol 750 mg tablet 750 mg PO QID methotrexate sodium 2.5 mg tablet 20 mg PO WEEKLY ropinirole 0.25 mg tablet 0.25 mg PO HS Rx Instructions: administer 1-3 hours before bedtime hydroxychloroquine 200 mg tablet 200 mg PO BID ketoconazole 2 % cream 1 applic topical BID [employer] 1.5 billion cell capsule 1 cap PO DAILY Anoro Ellipta 62.5-25 mcg/actuation blister with device 1 inh inhalation DAILY Enbrel 25 mg/0.5 mL solution 50 mg SQ WEEKLY montelukast 10 mg tablet 10 mg PO DAILY fluticasone propionate [Flonase Allergy Relief] 50 mcg/actuation spray,suspension 2 spray intranasal DAILY Rx Instructions: administer into each nostril azelastine 205.5 mcg (0.15 %) spray,non-aerosol 2 spray intranasal HS Rx Instructions: administer into each nostril Dulera 100-5 mcg/actuation HFA aerosol inhaler 2 puff inhalation BID guaifenesin [Mucinex] 600 mg tablet extended release 12hr 600 - 1,200 mg PO BIDP PRN (Reason: Congestion) Qty: 30 0RF Referrals Follow up/Referrals: Maricarmen Kaye PA [Primary Care Provider] - See instructions Activity Restrictions/Add. Instructions Additional Instructions/Restrictions: Continue taking your Muscle relaxers as prescribed Motrin and/or Tylenol as directed on package for pain *Ibuprofen zachary 6 hours with meal as needed for pain/inflammation *Not additional anti-inflammatory like motrin, aleve, advil with the above amount of ibuprofen. You can still take Tylenol every 4 hours as needed if you need something else for pain *Ice 20 minutes every 2 hours for the first 48 hours after the initial injury followed by moist heat every 20 minutes 3-4 times a day to affected area *Muscle relaxer as presribed as needed for muscle spasms but remember, it WILL cause drowsiness You cannot take it and drive, operate machinery or care for small children. *Keep this area active, no movement leads to more stiffness, However take it easy and avoid heavy lifting pushing or pulling *Follow up with you family doctor if no improvement for further treatment Clinical Impressions Clinical Impression: Muscle spasm Instructions Patient Instructions: DI for Muscle Spasm Discharge ED Provider: Danielle Jennings [facility] General Stated complaint: ao 06/19, back and left shoulder pain Mode of Arrival: Ambulatory Source of Information: Patient Limitations: No Limitations Time Seen by Provider: 06/21/22 12:46 Description of Symptoms (Re
[2022-06-21 13:13] VITALS: BP 141/97; PULSE 85; RESP 20; TEMP 36.7; O2SAT 100
== END 2022-06-21 13:16 | disposition home or self-care (01) ==
PROVIDERS: Emergency Provider Nurse Practitioner; PCP Physician Assistant
DX: M54.2 Cervicalgia (principal); M25.511 Pain in right shoulder; M62.838 Other muscle spasm
CPT/HCPCS: 99212; G0463

== ENCOUNTER 2022-07-02 16:26 | Emergency (ER) | payer OTHER, SELFPAY ==
[2022-07-02 16:27] VITALS: BP 142/79; PULSE 52; RESP 17; TEMP 37; O2SAT 98; BMI 40.8
--- NOTE | 2022-07-02 17:00 | XR_ITS ---
PROCEDURE INFORMATION: Exam: XR Right Ankle Exam date and time: 07/02/2022 5:29 PM Age: 42 years old Clinical indication: Injury or trauma; Fall; Sprain or strain; Ankle; Right; Additional info: Fall with ankle injury TECHNIQUE: Imaging protocol: Radiologic exam of the right ankle. Views: 1 or 2 views. COMPARISON: CR XR ANKLE WT BEARING RT MIN 3V 01/26/2022 11:26 AM FINDINGS: Bones/joints: No fracture or dislocation identified.. Small posterior heel spur redemonstrated. Surgical anchor in the superior calcaneus again noted. Soft tissues: Normal. IMPRESSION: No acute findings.
[2022-07-02 17:03] VITALS: BP 117/73; PULSE 56; O2SAT 94
--- NOTE | 2022-07-02 17:07 | XR_ITS ---
PROCEDURE INFORMATION: Exam: XR Right Knee Exam date and time: 07/02/2022 5:29 PM Age: 42 years old Clinical indication: Pain; Knee; Right; Additional info: Right knee and tib fib pain TECHNIQUE: Imaging protocol: Radiologic exam of the right knee. Views: 1 or 2 views. COMPARISON: CR XR ANKLE WT BEARING RT MIN 3V 01/26/2022 11:26 AM FINDINGS: Bones/joints: Mild tricompartmental degenerative changes with spurring. No significant joint space narrowing. No fracture evident. Soft tissues: Normal. IMPRESSION: Mild degenerative changes.
--- NOTE | 2022-07-02 17:07 | XR_ITS ---
PROCEDURE INFORMATION: Exam: XR Right Tibia and Fibula Exam date and time: 07/02/2022 5:29 PM Age: 42 years old Clinical indication: Pain; Lower leg; Right; Additional info: Right tib fib and ankle pain TECHNIQUE: Imaging protocol: Radiologic exam of the right tibia and fibula. Views: 2 views. COMPARISON: CR XR ANKLE WT BEARING RT MIN 3V 01/26/2022 11:26 AM FINDINGS: Bones/joints: Normal. No fracture or dislocation identified. Soft tissues: Normal. IMPRESSION: No acute findings.
--- NOTE | 2022-07-02 17:08 | HMH.EDGENADL ---
Discharge Plan Disposition Patient Disposition: Home, Self-Care Condition: Good Prescriptions Prescriptions: No Action Lastacaft 0.25 % drops 1 drp ophthalmic (eye) DAILY PRN (Reason: allergy symptoms) Qty: 3 0RF albuterol sulfate [ProAir HFA] 90 mcg/actuation HFA aerosol inhaler 2 puff inhalation Q4-6H PRN (Reason: shortness of breath or wheezing) Qty: 8.5 5RF clonidine HCl 0.1 mg tablet 0.1 mg PO BID Qty: 180 0RF Rx Instructions: Take 1 tablet by oral route BID if blood pressure goes over 160/90 losartan-hydrochlorothiazide 100-25 mg tablet 1 tab PO DAILY Qty: 90 0RF cefuroxime axetil 500 mg tablet 500 mg PO cyclobenzaprine 10 mg tablet 10 mg PO Q8H Qty: 90 2RF cyanocobalamin (vitamin B-12) 1,000 mcg/mL solution 1,000 mcg IM QMONTH Qty: 10 1RF desvenlafaxine succinate [Pristiq] 50 mg tablet extended release 24 hr 50 mg PO DAILY Qty: 30 1RF dicyclomine 20 mg tablet 20 mg PO BID Qty: 60 0RF ondansetron 4 mg tablet,disintegrating See Rx Instructions .ROUTE .COMPLEX Qty: 20 0RF Dose Instruction: DISSOLVE 1 TABLET ON THE TONGUE EVERY 8 HOURS NEEDED FOR NAUSEA Rx Instructions: DISSOLVE 1 TABLET ON THE TONGUE EVERY 8 HOURS NEEDED FOR NAUSEA clobetasol 0.05 % cream 1 applic topical BID aspirin [Adult Aspirin Regimen] 81 mg tablet,delayed release (DR/EC) 81 mg PO DAILY methocarbamol 750 mg tablet 750 mg PO QID methotrexate sodium 2.5 mg tablet 20 mg PO WEEKLY ropinirole 0.25 mg tablet 0.25 mg PO HS Rx Instructions: administer 1-3 hours before bedtime hydroxychloroquine 200 mg tablet 200 mg PO BID ketoconazole 2 % cream 1 applic topical BID [employer] 1.5 billion cell capsule 1 cap PO DAILY Anoro Ellipta 62.5-25 mcg/actuation blister with device 1 inh inhalation DAILY Enbrel 25 mg/0.5 mL solution 50 mg SQ WEEKLY montelukast 10 mg tablet 10 mg PO DAILY fluticasone propionate [Flonase Allergy Relief] 50 mcg/actuation spray,suspension 2 spray intranasal DAILY Rx Instructions: administer into each nostril azelastine 205.5 mcg (0.15 %) spray,non-aerosol 2 spray intranasal HS Rx Instructions: administer into each nostril Dulera 100-5 mcg/actuation HFA aerosol inhaler 2 puff inhalation BID guaifenesin [Mucinex] 600 mg tablet extended release 12hr 600 - 1,200 mg PO BIDP PRN (Reason: Congestion) Qty: 30 0RF Referrals Follow up/Referrals: Maricarmen Kaye PA [Primary Care Provider] - See instructions Clinical Impressions Clinical Impression: Acute right ankle pain Discharge ED Provider: Dominic Richardson [facility] HPI General Chief complaint: Extremity Injury, Lower Stated complaint: AO 07/02@1600 injured R Ankle Time Seen by Provider: 07/02/22 16:31 Mode of Arrival: Wheelchair Source of Information: Patient Limitations: No Limitations Description of Symptoms (Recalled from ER Triage Doc. by RN): pt to ED with right ankle pain after the legs on her plastic furniture broke and she fell on top of herself. History of Present Illness HPI narrative: Is a 42-year-old female with history of bipolar, anxiety, fibromyalgia is presenting with right ankle and tib-fib pain. About 1/2-hour prior to arrival, patient was sitting in a plastic chair when the chair collapsed and she landed on her right foot and ankle. Has been able to bear weight, but with significant pain. Hurts primarily in the lateral aspect of her ankle and posterior aspect of her calf. Motor and sensation still intact. No other trauma Related Data Home Medications Medication Instructions Recorded Confirmed Lactobacills gasseri-Bifidobac 1 cap PO DAILY SUPPLIMENT 12/25/21 06/10/22 bifidum,longum 1.5 billion cell capsule ([employer]) aspirin 81 mg tablet,delayed 81 mg PO DAILY Blood thinner 12/25/21 06/10/22 release (Adult Aspi
[2022-07-02 17:30] VITALS: BP 134/85; PULSE 82; O2SAT 94
[2022-07-02 18:01] VITALS: BP 127/86; PULSE 80; O2SAT 98
[2022-07-02 18:30] VITALS: BP 133/88; PULSE 73; O2SAT 98
--- NOTE | 2022-07-02 18:32 | PC.NURSE ---
rounded on pt, family states pt is ready to go, states it took the edge off with the pain medicine
[2022-07-02 18:52] VITALS: BP 134/87; PULSE 71; RESP 18; TEMP 36.7; O2SAT 98
== END 2022-07-02 18:52 | disposition home or self-care (01) ==
PROVIDERS: Emergency Provider Emergency Medicine; PCP Physician Assistant
DX: M25.571 Pain in right ankle and joints of right foot (principal); W07.XXXA Fall from chair, initial encounter
CPT/HCPCS: 73560; 73590; 73600; 99284

== ENCOUNTER 2022-11-04 19:15 | Emergency (ER) | payer OTHER, SELFPAY ==
[2022-11-04 19:16] VITALS: BP 154/88; PULSE 64; RESP 18; TEMP 36.8; O2SAT 100; BMI 41.0
--- NOTE | 2022-11-04 19:44 | EXP.UTC ---
Discharge Plan Disposition Patient Disposition: Home, Self-Care Condition: Good Prescriptions Prescriptions: New ondansetron 4 mg Tablet,Disintegrating 4 mg PO Q8H PRN (Reason: Nausea) Qty: 12 0RF No Action Lastacaft 0.25 % drops 1 drp ophthalmic (eye) DAILY PRN (Reason: allergy symptoms) Qty: 3 0RF folic acid 1 mg tablet 1 mg PO DAILY epinephrine 0.3 mg/0.3 mL auto-injector IM ONCE buprenorphine-naloxone 8-2 mg film 1 film sublingual DAILY clobetasol 0.05 % cream 1 applic topical BID Qty: 45 1RF methylprednisolone [Medrol (Dale)] 4 mg tablets,dose pack See Rx Instructions PO PER PKG DIR Qty: 21 0RF Rx Instructions: PO PER PKG DIR pregabalin [Lyrica] 150 mg capsule 150 mg PO BID Qty: 60 3RF albuterol sulfate [ProAir HFA] 90 mcg/actuation HFA aerosol inhaler 2 puff inhalation Q4-6H PRN (Reason: shortness of breath or wheezing) Qty: 8.5 5RF clonidine HCl 0.1 mg tablet 0.1 mg PO BID Qty: 180 0RF Rx Instructions: Take 1 tablet by oral route BID if blood pressure goes over 160/90 losartan-hydrochlorothiazide 100-25 mg tablet 1 tab PO DAILY Qty: 90 0RF cyanocobalamin (vitamin B-12) 1,000 mcg/mL solution 1,000 mcg IM QMONTH Qty: 10 1RF (DME) BD Luer-Merlyn Syringe 3 mL 25 gauge x 1 syringe See Rx Instructions .ROUTE .COMPLEX Qty: 100 0RF Dose Instruction: USE DIRECTED WITH B12 INJECTIONS Rx Instructions: USE DIRECTED WITH B12 INJECTIONS ondansetron 4 mg tablet,disintegrating See Rx Instructions .ROUTE .COMPLEX Qty: 30 3RF Dose Instruction: DISSOLVE 1 TABLET ON THE TONGUE EVERY 8 HOURS NEEDED FOR NAUSEA Rx Instructions: DISSOLVE 1 TABLET ON THE TONGUE EVERY 8 HOURS NEEDED FOR NAUSEA dicyclomine 20 mg tablet See Rx Instructions .ROUTE .COMPLEX Qty: 60 2RF Dose Instruction: TAKE ONE TABLET BY MOUTH 2 TIMES A DAY FOR STOMACH Rx Instructions: TAKE ONE TABLET BY MOUTH 2 TIMES A DAY FOR STOMACH cyclobenzaprine 10 mg tablet See Rx Instructions .ROUTE .COMPLEX Qty: 90 0RF Dose Instruction: TAKE ONE TABLET BY MOUTH EVERY 8 HOURS Rx Instructions: TAKE ONE TABLET BY MOUTH EVERY 8 HOURS clobetasol 0.05 % cream 1 applic topical BID aspirin [Adult Aspirin Regimen] 81 mg tablet,delayed release (DR/EC) 81 mg PO DAILY methotrexate sodium 2.5 mg tablet 20 mg PO WEEKLY hydroxychloroquine 200 mg tablet 200 mg PO BID ketoconazole 2 % cream 1 applic topical BID Quizens 1.5 billion cell capsule 1 cap PO DAILY Anoro Ellipta 62.5-25 mcg/actuation blister with device 1 inh inhalation DAILY fluticasone propionate [Flonase Allergy Relief] 50 mcg/actuation spray,suspension 2 spray intranasal DAILY Rx Instructions: administer into each nostril azelastine 205.5 mcg (0.15 %) spray,non-aerosol 2 spray intranasal HS Rx Instructions: administer into each nostril Dulera 100-5 mcg/actuation HFA aerosol inhaler 2 puff inhalation BID Referrals Follow up/Referrals: Gilmar Elias MD [Primary Care Provider] - See instructions Activity Restrictions/Add. Instructions Additional Instructions/Restrictions: Drink plenty of fluids. Take tylenol or ibuprofen for pain or fever. Take the medications as directed. Follow up with your regular doctor. GO TO THE ER FOR ANY WORSENING SYMPTOMS Clinical Impressions Clinical Impression: Acute viral syndrome Stand Alone Forms Stand Alone Forms: Work/School Release Instructions Patient Instructions: DI for Viral Syndrome, Ondansetron Discharge ED Provider: Garcia Tyler [facility] [place] H[place] General Stated complaint: body aches, chill, V/D Mode of Arrival: Ambulatory Source of Information: Patient Limitations: No Limitations Time Seen by Provider: 11/04/22 19:44 Description of Symptoms (Recalled from Triage Doc. by RN): Patient reports throwin
[2022-11-04 19:59] VITALS: BP 154/88; PULSE 64; RESP 18; TEMP 36.8; O2SAT 100
== END 2022-11-04 20:00 | disposition home or self-care (01) ==
PROVIDERS: Emergency Provider Nurse Practitioner Family; PCP Family Medicine
DX: R11.2 Nausea with vomiting, unspecified (principal); R19.7 Diarrhea, unspecified; B34.9 Viral infection, unspecified; F17.210 Nicotine dependence, cigarettes, uncomplicated; J44.9 Chronic obstructive pulmonary disease, unspecified; J45.40 Moderate persistent asthma, uncomplicated; F31.81 Bipolar II disorder; F41.1 Generalized anxiety disorder
CPT/HCPCS: 99212; 99214; G0463

== ENCOUNTER → 2022-12-15 23:30 | Outpatient (CLI) | payer OTHER, SELFPAY ==
[2022-12-15 18:42] LABS: Basophils # 0.1 K/mm3 (0-0.2); Basophils % 0.9 % (0.1-2.0); Eosinophils # 0.2 K/mm3 (0.0-0.4); Eosinophils % 2.9 % (0.1-12.0); Hematocrit 45.8 % (37.0-47.0); Hemoglobin 14.2 g/dL (12.2-16.2); Lymphocytes # 1.9 K/mm3 (0.7-4.5); Lymphocytes % 26.1 % (10-50); Mean Corpuscular Volume 93.5 fl (81-99); Mean Platelet Volume 9.4 fl (7.4-10.4); Monocytes # 0.5 K/mm3 (0.1-1.0); Monocytes % 7.2 % (1.7-9.3); Neutrophils # 4.6 K/mm3 (1.8-7.8); Neutrophils % 62.8 % (37.0-80.0); Platelet Count 325 K/mm3 (142-424); Red Cell Distribution Width 13.8 % (11.5-17.5); White Blood Count 7.3 K/mm3 (4.8-10.8)
[2022-12-15 19:03] LABS: Alanine Aminotransferase 16 U/L (12-78); Albumin Level 3.8 g/dl (3.5-5.0); Albumin/Globulin Ratio 1.2 (1.1-1.8); Alkaline Phosphatase 82 U/L (38-126); Anion Gap 14.6 mEq/L (5-15); Aspartate Amino Transferase 29 U/L (14-36); Bilirubin,Total 0.7 mg/dl (0.2-1.3); Blood Urea Nitrogen 14 mg/dl (7-17); Carbon Dioxide 27 mmol/L (22.0-30.0); Chloride 103 mmol/L (98-107); Chol/HDL Ratio 4.5 (1-3.5); Cholesterol 198 mg/dl (140-200); Estimated Glomerular Filt Rate 79 ml/min (>60); GFR (African American) 96 ML/MIN (>60); Globulin 3.1 g/dL (1.3-3.2); Glucose 82 mg/dl (74-100); HDL Cholesterol 44 mg/dl (40-60); Potassium 4.6 mmoL/L (3.5-5.1); Sodium 140 mmol/L (136-145); Total Protein,Serum 6.9 g/dl (6.3-8.2); Triglycerides 61 mg/dl (30-150); VLDL Cholesterol 12 mg/dL (0-40)
[2022-12-15 19:14] LABS: Direct LDL Cholesterol 124.34 mg/dL (100-129)
[2022-12-15 19:20] LABS: 25-OH Vitamin D, Total 31.8 ng/mL (30-100)
[2022-12-15 19:35] LABS: Thyroid Stimulating Hormone 1.47 uIU/mL (0.465-4.68)
== END ==
PROVIDERS: PCP Student in an Organized Health Care Education/Training Program; Visit Provider Student in an Organized Health Care Education/Training Program
DX: M79.7 Fibromyalgia (principal); R53.83 Other fatigue; E66.01 Morbid (severe) obesity due to excess calories; Z68.41 Body mass index [BMI] 40.0-44.9, adult
CPT/HCPCS: 80053; 80061; 82306; 84443; 85025; 87635

== ENCOUNTER 2023-01-02 10:19 | Emergency (ER) | payer OTHER, SELFPAY ==
[2023-01-02 10:25] VITALS: BP 132/77; PULSE 85; RESP 20; TEMP 37; O2SAT 94; BMI 41.0
--- NOTE | 2023-01-02 10:27 | XR_ITS ---
PROCEDURE INFORMATION: Exam: XR Left Ankle Exam date and time: 01/02/2023 10:30 AM Age: 42 years old Clinical indication: Injury or trauma; Fall; Blunt trauma; Ankle; Left; Additional info: Fall, pain/swelling, lateral ttp TECHNIQUE: Imaging protocol: Radiologic exam of the left ankle. Views: 3 or more views. Total images: 3 COMPARISON: CR XR ANKLE WT BEARING LT MIN 3V 01/26/2022 11:26 AM FINDINGS: Bones/joints: No evidence of acute fracture. No evidence of acute dislocation. Calcaneal spurs are present. Soft tissues: Soft tissue swelling is present. IMPRESSION: 1. Soft tissue swelling is present. 2. No evidence of acute fracture. 3. No evidence of acute dislocation.
--- NOTE | 2023-01-02 10:27 | XR_ITS ---
PROCEDURE INFORMATION: Exam: XR Left Tibia and Fibula Exam date and time: 01/02/2023 10:31 AM Age: 42 years old Clinical indication: Injury or trauma; Fall; Blunt trauma; Lower leg; Left; Additional info: Fall, pain/swelling TECHNIQUE: Imaging protocol: Radiologic exam of the left tibia and fibula. Views: 2 views. Total images: 4 COMPARISON: CR Ankle L 01/02/2023 10:30 AM FINDINGS: Bones/joints: No evidence of acute fracture. No evidence of acute dislocation. Calcaneal spurs are present. Soft tissues: Lateral soft tissue swelling. IMPRESSION: 1. Lateral soft tissue swelling. 2. No evidence of acute fracture. 3. No evidence of acute dislocation.
--- NOTE | 2023-01-02 10:27 | XR_ITS ---
PROCEDURE INFORMATION: Exam: XR Left Foot Exam date and time: 01/02/2023 10:29 AM Age: 42 years old Clinical indication: Injury or trauma; Fall; Blunt trauma; Foot; Left; Additional info: Fall, pain/swelling, lateral ttp TECHNIQUE: Imaging protocol: Radiologic exam of the left foot. Views: 3 or more views. Total images: 3 COMPARISON: CR XR FOOT WT BEARING LT 3V 01/23/2022 1:29 PM FINDINGS: Bones/joints: No evidence of acute fracture or dislocation. Calcaneal spurs are present. Soft tissues: Mild soft tissue swelling. IMPRESSION: 1. No evidence of acute fracture or dislocation. 2. Mild soft tissue swelling.
[2023-01-02 10:29] VITALS: BP 132/77; PULSE 77; O2SAT 96
[2023-01-02 10:30] VITALS: BP 130/76; PULSE 85; O2SAT 96
--- NOTE | 2023-01-02 10:30 | HMH.EDGENADL ---
Discharge Plan Disposition Patient Disposition: Home, Self-Care Condition: Good Prescriptions Prescriptions: No Action Lastacaft 0.25 % drops 1 drp ophthalmic (eye) DAILY PRN (Reason: allergy symptoms) Qty: 3 0RF folic acid 1 mg tablet 1 mg PO DAILY epinephrine 0.3 mg/0.3 mL auto-injector 0.3 ml IM ONCE buprenorphine-naloxone 8-2 mg film 1 film sublingual DAILY [id number] [Bromfed DM] 2-30-10 mg/5 mL syrup 5 ml PO Q4-6H PRN (Reason: cold symptoms) Qty: 118 0RF Humira Pen 40 mg/0.8 mL pen injector kit 40 mg SQ Q2W levocetirizine 5 mg tablet 5 mg PO DAILY desvenlafaxine succinate 50 mg tablet extended release 24 hr 50 mg PO DAILY cefdinir 300 mg capsule 300 mg PO Q12H 10 Days Qty: 20 0RF ondansetron 8 mg tablet,disintegrating 8 mg PO Q8H PRN (Reason: nausea and vomiting) 5 Days Qty: 30 0RF prednisone 20 mg tablet 20 mg PO DAILY Qty: 18 0RF Rx Instructions: TID X 3 days, BID X 3 days, QD X 3 days promethazine-DM 6.25-15 mg/5 mL syrup 5 ml PO Q6H PRN (Reason: cough) Qty: 180 0RF ipratropium-albuterol 0.5 mg-3 mg(2.5 mg base)/3 mL solution for nebulization 3 ml inhalation QID PRN (Reason: shortness of breath or wheezing) Qty: 180 0RF albuterol sulfate [ProAir HFA] 90 mcg/actuation HFA aerosol inhaler 2 puff inhalation Q4-6H PRN (Reason: shortness of breath or wheezing) Qty: 8.5 5RF clonidine HCl 0.1 mg tablet 0.1 mg PO BID Qty: 180 0RF Rx Instructions: Take 1 tablet by oral route BID if blood pressure goes over 160/90 losartan-hydrochlorothiazide 100-25 mg tablet 1 tab PO DAILY Qty: 90 0RF pregabalin [Lyrica] 150 mg capsule 150 mg PO BID Qty: 60 3RF cyanocobalamin (vitamin B-12) 1,000 mcg/mL solution 1,000 mcg IM QMONTH Qty: 10 1RF (DME) BD Luer-Merlyn Syringe 3 mL 25 gauge x 1 syringe See Rx Instructions .ROUTE .COMPLEX Qty: 100 0RF Dose Instruction: USE DIRECTED WITH B12 INJECTIONS Rx Instructions: USE DIRECTED WITH B12 INJECTIONS dicyclomine 20 mg tablet See Rx Instructions .ROUTE .COMPLEX Qty: 60 2RF Dose Instruction: TAKE ONE TABLET BY MOUTH 2 TIMES A DAY FOR STOMACH Rx Instructions: TAKE ONE TABLET BY MOUTH 2 TIMES A DAY FOR STOMACH cyclobenzaprine 10 mg tablet See Rx Instructions .ROUTE .COMPLEX Qty: 90 3RF Dose Instruction: TAKE ONE TABLET BY MOUTH EVERY 8 HOURS Rx Instructions: TAKE ONE TABLET BY MOUTH EVERY 8 HOURS aspirin [Adult Aspirin Regimen] 81 mg tablet,delayed release (DR/EC) 81 mg PO DAILY methotrexate sodium 2.5 mg tablet 20 mg PO WEEKLY [employer]5 billion cell capsule 1 cap PO DAILY Anoro Ellipta 62.5-25 mcg/actuation blister with device 1 inh inhalation DAILY fluticasone propionate [Flonase Allergy Relief] 50 mcg/actuation spray,suspension 2 spray intranasal DAILY Rx Instructions: administer into each nostril azelastine 205.5 mcg (0.15 %) spray,non-aerosol 2 spray intranasal HS Rx Instructions: administer into each nostril Dulera 100-5 mcg/actuation HFA aerosol inhaler 2 puff inhalation BID Referrals Follow up/Referrals: Austen Ta MD [Primary Care Provider] - See instructions Activity Restrictions/Add. Instructions Additional Instructions/Restrictions: You were evaluated in the emergency department today for left foot/ankle swelling, pain after a fall. You do not have fracture or dislocation. This is likely a bad sprain. Use the air splint and crutches for getting around until you are reevaluated by your primary care physician. Make an appointment with your primary care physician for reevaluation in 2 to 3 days. Continue taking all your home medications as previously prescribed. You may also take Tylenol if needed. Do not exceed the recommended doses on the bottle. Drink plenty of fluids. Apply ice and elevate the foot m
--- NOTE | 2023-01-02 10:38 | PC.NURSE ---
PT TRANSPORTED TO RADIOLOGY.
[2023-01-02 11:24] VITALS: BP 130/76; PULSE 85; RESP 16; TEMP 37
== END 2023-01-02 11:25 | disposition home or self-care (01) ==
PROVIDERS: Emergency Provider Emergency Medicine; PCP Internal Medicine Adolescent Medicine
DX: S93.402A Sprain of unspecified ligament of left ankle, initial encounter (principal); F17.210 Nicotine dependence, cigarettes, uncomplicated; J44.9 Chronic obstructive pulmonary disease, unspecified; I10 Essential (primary) hypertension; F31.81 Bipolar II disorder; F41.9 Anxiety disorder, unspecified; J30.9 Allergic rhinitis, unspecified; W19.XXXA Unspecified fall, initial encounter
CPT/HCPCS: 73590; 73610; 73630; 99283

== ENCOUNTER → 2023-03-11 15:11 | Outpatient (CLI) | payer MEDICAID, SELFPAY ==
--- NOTE | 2023-03-11 15:11 | MM_ITS ---
PROCEDURE INFORMATION: Exam: MG Bilateral Screening 3D Mammography Exam date and time: 03/11/2023 2:59 PM Age: 43 years old Clinical indication: Screening examination TECHNIQUE: Imaging protocol: Bilateral Screening tomosynthesis and 2D mammography including computer-aided detection (CAD) when performed. COMPARISON: 1. MG MM DIG MAMM BI DX W/CAD 01/21/2022 2:16 PM 2. MG MAMMO SCREENING BILATERAL INCL CAD 02/14/2021 1:30 PM FINDINGS: MAMMOGRAPHY: Breast composition: The breasts are almost entirely fatty. Mass: None. Architectural distortion: None. Calcifications: No suspicious calcifications. Asymmetric density: None. Skin thickening: None. Axillary adenopathy: None. IMPRESSION: No mammographic evidence of malignancy. Annual screening is recommended unless otherwise clinically indicated. ASSESSMENT: BI-RADS Category 1: Negative
== END ==
PROVIDERS: PCP Physician Assistant; Visit Provider Physician Assistant
DX: Z12.31 Encounter for screening mammogram for malignant neoplasm of breast (principal)
CPT/HCPCS: 77063; 77067

== ENCOUNTER → 2023-03-16 23:38 | Outpatient (CLI) | payer MEDICAID, SELFPAY ==
[2023-03-16 17:45] LABS: Coronavirus 19, PCR Not Detected (NotDetected); Influenza A, PCR Not Detected (NotDetected); Influenza B, PCR Not Detected (NotDetected)
[2023-03-16 23:14] LABS: Barbiturates Screen,Urine Negative ng/ml (<200); Benzodiazepines Screen,Urine Negative ng/ml (<200); Cannabinoid Screen,Urine Negative ng/ml (<50); Cocaine Screen,Urine Negative ng/ml (<300); Methadone Screen,Urine Negative ng/ml (<300)
[2023-03-16 23:19] LABS: Amphetamine/Metha Screen,Urine Negative ng/ml (<1000); Opiate Screen,Urine Negative ng/ml (<300); Phencyclidine Screen,Urine Negative ng/ml (<25)
== END ==
LOC: LAB.DROPOF 23:38
PROVIDERS: PCP Physician Assistant; Visit Provider Family Medicine
DX: J02.9 Acute pharyngitis, unspecified (principal); R05.9 Cough, unspecified; F31.81 Bipolar II disorder; Z79.899 Other long term (current) drug therapy
CPT/HCPCS: 80307; 87636

== ENCOUNTER 2023-03-27 12:04 | Emergency (ER) | payer MEDICAID, SELFPAY ==
[2023-03-27 12:40] VITALS: BP 141/67; PULSE 118; RESP 18; TEMP 38.3; O2SAT 98; BMI 47.0
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
[2023-03-27 13:01] LABS: UTC Influenza A Antigen Negative (Negative)
[2023-03-27 13:02] LABS: UTC Influenza B Antigen Negative (Negative)
[2023-03-27 13:24] VITALS: BP 134/88; PULSE 80; RESP 19; TEMP 37; O2SAT 99
[2023-03-27 13:25] VITALS: BP 133/88; PULSE 81; RESP 19; TEMP 37.7; O2SAT 99
[2023-03-27] MEDS: ACETAMINOPHEN 325MG TAB 650 MG PO (13:35)
[2023-03-27 14:08] LABS: Adenovirus,PCR Not Detected (NotDetected); Coronavirus 19, PCR Not Detected (NotDetected); Coronavirus 229E Not Detected (NotDetected); Coronavirus NL63 Not Detected (NotDetected); Coronavirus OC43 Not Detected (NotDetected); Coronovirus HKU1,PCR Not Detected (NotDetected); Human Metapneumovirus Not Detected (NotDetected); Influenza A, PCR Not Detected (NotDetected); Influenza AH1, 2009 Not Detected (NotDetected); Influenza AH1, PCR Not Detected (NotDetected); Influenza AH3,PCR Not Detected (NotDetected); Influenza B, PCR Not Detected (NotDetected); Parainfluenza 1, PCR Not Detected (NotDetected); Parainfluenza 2, PCR Not Detected (NotDetected); Parainfluenza 3, PCR Not Detected (NotDetected); Parainfluenza 4, PCR Not Detected (NotDetected); Respiratory Syncytial Virus Not Detected (NotDetected); Rhinovirus/Enterovirus Not Detected (NotDetected)
== END 2023-03-27 13:35 | disposition home or self-care (01) ==
PROVIDERS: Emergency Provider Nurse Practitioner; PCP Physician Assistant
DX: J01.90 Acute sinusitis, unspecified (principal); R51.9 Headache, unspecified; R50.9 Fever, unspecified; R05.9 Cough, unspecified; R09.81 Nasal congestion; R09.82 Postnasal drip; M79.18 Myalgia, other site; H92.03 Otalgia, bilateral; R07.0 Pain in throat; F17.210 Nicotine dependence, cigarettes, uncomplicated; J44.9 Chronic obstructive pulmonary disease, unspecified; I10 Essential (primary) hypertension
CPT/HCPCS: 87632; 87635; 87804; 99212; 99214; G0463

== ENCOUNTER 2023-04-30 15:44 | Emergency (ER) | payer MEDICAID, SELFPAY ==
[2023-04-30 15:56] VITALS: BP 143/82; PULSE 97; RESP 16; TEMP 37.1; O2SAT 97; BMI 43.2
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
[2023-04-30 18:00] VITALS: BP 151/95; PULSE 89; O2SAT 99
[2023-04-30 18:27] LABS: Basophils # 0.1 K/mm3 (0-0.2); Basophils % 0.6 % (0.1-2.0); Eosinophils # 0.2 K/mm3 (0.0-0.4); Eosinophils % 2.4 % (0.1-12.0); Hematocrit 40.2 % (37.0-47.0); Hemoglobin 13.6 g/dL (12.2-16.2); Lymphocytes # 2.4 K/mm3 (0.7-4.5); Lymphocytes % 32.9 % (10-50); Mean Corpuscular HGB Conc 33.8 g/dL (31.8-35.4); Mean Corpuscular Volume 91.6 fl (81-99); Mean Platelet Volume 8.3 fl (7.4-10.4); Monocytes # 0.4 K/mm3 (0.1-1.0); Monocytes % 5.7 % (1.7-9.3); Neutrophils # 4.3 K/mm3 (1.8-7.8); Neutrophils % 58.4 % (37.0-80.0); Platelet Count 262 K/mm3 (142-424); Red Blood Count 4.38 M/mm3 (4.20-5.40); Red Cell Distribution Width 13.7 % (11.5-17.5); White Blood Count 7.4 K/mm3 (4.8-10.8)
[2023-04-30 18:31] LABS: Alanine Aminotransferase 16 U/L (12-78); Albumin Level 3.7 g/dl (3.5-5.0); Albumin/Globulin Ratio 1.3 (1.1-1.8); Alkaline Phosphatase 75 U/L (38-126); Anion Gap 7.4 mEq/L (5-15); Aspartate Amino Transferase 26 U/L (14-36); Bilirubin,Total 0.3 mg/dl (0.2-1.3); Blood Urea Nitrogen 9 mg/dl (7-17); Calcium 8.7 mg/dl (8.4-10.2); Carbon Dioxide 33 mmol/L (22.0-30.0); Creatinine Clearance Estimated 86 mL/min (50-200); Estimated Glomerular Filt Rate 79 ml/min (>60); GFR (African American) 95 ML/MIN (>60); Globulin 2.8 g/dL (1.3-3.2); Glucose 113 mg/dl (74-100); Potassium 3.4 mmoL/L (3.5-5.1); Sodium 141 mmol/L (136-145); Total Protein,Serum 6.5 g/dl (6.3-8.2)
[2023-04-30 18:34] LABS: Activated Partial Thrombo Time 26.7 seconds (22.8-30.6); INR 0.98 (0.9-1.1); Prothrombin Time 10.6 seconds (10.1-12.5)
[2023-04-30 18:35] LABS: Chloride 104 mmol/L (98-107)
[2023-04-30 18:50] LABS: D-Dimer 0.55 ug/mL (0.0-0.5)
--- NOTE | 2023-04-30 19:02 | CT_ITS ---
PROCEDURE INFORMATION: Exam: CTA Chest Without And With Contrast Exam date and time: 04/30/2023 7:20 PM Age: 43 years old Clinical indication: Shortness of breath; Additional info: Dimer elevation, clotting disorder, SOA TECHNIQUE: Imaging protocol: Computed tomographic angiography of the chest without and with contrast. Exam focused on the arteries. 3D rendering (Not supervised by radiologist): MIP and/or 3D reconstructed images were created by the technologist. Radiation optimization: All CT scans at this facility use at least one of these dose optimization techniques: automated exposure control; mA and/or kV adjustment per patient size (includes targeted exams where dose is matched to clinical indication); or iterative reconstruction. Contrast material: ISOVUE 370; Contrast volume: 70 ml; Contrast route: INTRAVENOUS (IV); COMPARISON: CT CHEST WO CON 07/04/2022 14:10 FINDINGS: Pulmonary arteries: No pulmonary emboli. Aorta: Unremarkable. No aortic aneurysm. No aortic dissection. Lungs: Unremarkable. No consolidation. No masses. Pleural spaces: Unremarkable. No pneumothorax. No pleural effusion. Heart: Borderline cardiomegaly. Mitral valve calcifications. Lymph nodes: Unremarkable. No enlarged lymph nodes. Liver: There are unchanged low-attenuation hepatic lesions measuring 3.2 cm and a 2.5 cm in the right hepatic lobe on images 106 and 100 series 5. Gallbladder and bile ducts: Gallbladder is absent. Bones/joints: Old right rib fractures. Soft tissues: Unremarkable. IMPRESSION: 1. No pulmonary emboli. 2. There are unchanged low-attenuation hepatic lesions measuring 3.2 cm and a 2.5 cm in the right hepatic lobe on images 106 and 100 series 5. These are statistically likely to be benign, however, if there are hepatic enzyme abnormalities or a history of malignancy, consider MRI with contrast to fully characterize these lesions.
[2023-04-30] MEDS: IOPAMIDOL-370 (76%);100ML BOTTLE 75 ML IV (19:24)
[2023-04-30] MEDS: 0.9 % SODIUM CHLORIDE 50 ML VIAL IV (19:24)
[2023-04-30] MEDS: SODIUM CHLORIDE 0.9% 10ML SYR (RAD ONLY) 10 ML IV (19:24)
--- NOTE | 2023-04-30 20:00 | INFXCTL.NOTE ---
Pt IV removed per request ok with dr carr
--- NOTE | 2023-04-30 20:02 | PC.NURSE ---
Assessment not charted on pt at time of arrival bedside assessment done for d/c, pt is requesting IV out and is ready to go home she states. Pt arm has been scanned, awaiting results.
[2023-04-30 21:23] VITALS: BP 150/82; PULSE 76; RESP 18; TEMP 36.8; O2SAT 99
== END 2023-04-30 21:24 | disposition home or self-care (01) ==
PROVIDERS: Emergency Provider Emergency Medicine; PCP Physician Assistant
DX: L03.113 Cellulitis of right upper limb (principal); R06.02 Shortness of breath; E72.12 Methylenetetrahydrofolate reductase deficiency; J44.9 Chronic obstructive pulmonary disease, unspecified; I10 Essential (primary) hypertension; J45.40 Moderate persistent asthma, uncomplicated; F17.210 Nicotine dependence, cigarettes, uncomplicated
CPT/HCPCS: 71275; 80053; 85025; 85378; 85610; 85730; 99285; Q9967

== ENCOUNTER 2023-05-17 09:41 | Outpatient (CLI) | payer MEDICAID, SELFPAY ==
--- NOTE | 2023-05-17 09:41 | CT_ITS ---
FINAL REPORT TECHNIQUE: Axial images through the abdomen and pelvis were performed without contrast.This study was performed with techniques to keep radiation doses as low as reasonably achievable, (ALARA). Individualized dose reduction techniques using automated exposure control or adjustment of mA and/or kV according to the patient's size were employed. CLINICAL HISTORY: Abd pain, hernia COMPARISON: 02/19/2022 FINDINGS: ABDOMEN: The lung bases are clear. The heart size is normal. There are 2 hypodense lesions in the right hepatic lobe which are unchanged from prior exam. No new liver lesion is identified. Patient is status postcholecystectomy. The spleen is normal. No adrenal mass is identified. The aorta is normal in caliber. There is no significant free fluid or adenopathy. There is no nephrolithiasis. There is no hydronephrosis. There is no evidence of small bowel obstruction. PELVIS: The appendix is normal. Pelvic GI tract is without acute abnormality. There are changes of ventral hernia repair along the lower anterior abdominal wall. Midline hernia inferior to the mesh is seen containing multiple small bowel loops. There is no evidence of obstruction. The urinary bladder is unremarkable. There is no significant free fluid or adenopathy. IMPRESSION: No acute abnormality. Midline ventral hernia inferior to mesh containing multiple small bowel loops without evidence of obstruction. Reviewed, Interpreted and Dictated by Fallon Solis MD Transcribed by Essie Camacho Authenticated and [facility]
== END 2023-05-17 23:59 ==
LOC: RAD 09:41
PROVIDERS: PCP Nurse Practitioner Family; Visit Provider Nurse Practitioner Family
DX: R10.9 Unspecified abdominal pain (principal); K46.9 Unspecified abdominal hernia without obstruction or gangrene
CPT/HCPCS: 74176

== ENCOUNTER 2023-05-18 19:50 | Emergency (ER) | payer MEDICAID, SELFPAY ==
[2023-05-18 19:51] VITALS: BP 144/97; PULSE 97; RESP 18; TEMP 37.2; O2SAT 100; BMI 39.1
[2023-05-18] MEDS: ACETAMINOPHEN 500MG TAB 1000 MG PO (20:22)
[2023-05-18] MEDS: ONDANSETRON 4MG ODT 8 MG SL (20:22)
[2023-05-18] MEDS: OXYCODONE 5MG IMMEDIATE RELEASE TABLET 5 MG PO (20:23)
[2023-05-18] MEDS: AMOXICILLIN/CLAVULANATE POTASSIUM 875/125MG TABLET 1 EACH PO (20:23)
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
[2023-05-18 21:20] VITALS: BP 130/96; PULSE 95; RESP 20; TEMP 37.4; O2SAT 98
== END 2023-05-18 21:26 | disposition home or self-care (01) ==
PROVIDERS: Emergency Provider Emergency Medicine; PCP Nurse Practitioner Family
DX: G50.1 Atypical facial pain (principal); R22.0 Localized swelling, mass and lump, head; M06.9 Rheumatoid arthritis, unspecified; J44.9 Chronic obstructive pulmonary disease, unspecified; I10 Essential (primary) hypertension; F17.210 Nicotine dependence, cigarettes, uncomplicated
CPT/HCPCS: 99283

== ENCOUNTER 2023-05-24 21:45 | Emergency (ER) | payer MEDICAID, SELFPAY ==
[2023-05-24 21:47] VITALS: BP 132/89; PULSE 81; RESP 19; TEMP 36.6; O2SAT 100; BMI 40.3
--- NOTE | 2023-05-24 21:58 | PC.NURSE ---
swab obtained and sent to lab
[2023-05-24 22:02] LABS: Coronavirus 19, PCR Not Detected (NotDetected); Influenza B, PCR Not Detected (NotDetected)
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
[2023-05-24 22:26] LABS: Influenza A, PCR Detected (NotDetected)
--- NOTE | 2023-05-24 22:26 | PC.NURSE ---
called lab and spoke with arelis. states they are releasing it now,the results.
[2023-05-24 22:44] VITALS: BP 134/80; PULSE 87; RESP 19; TEMP 36.6; O2SAT 97
== END 2023-05-24 22:44 | disposition home or self-care (01) ==
PROVIDERS: Emergency Provider Student in an Organized Health Care Education/Training Program; PCP Physician Assistant
DX: J10.1 Influenza due to other identified influenza virus with other respiratory manifestations (principal); R50.9 Fever, unspecified; R11.0 Nausea; R05.9 Cough, unspecified; F17.210 Nicotine dependence, cigarettes, uncomplicated; J44.9 Chronic obstructive pulmonary disease, unspecified; I10 Essential (primary) hypertension
CPT/HCPCS: 87636; 99283

== ENCOUNTER 2023-10-25 22:53 | Emergency (ER) | payer MEDICAID, SELFPAY ==
[2023-10-25 22:54] VITALS: BP 152/95; PULSE 76; RESP 20; TEMP 36.7; O2SAT 100; BMI 46.5
--- NOTE | 2023-10-25 23:16 | CT_ITS ---
PROCEDURE INFORMATION: Exam: CT Abdomen And Pelvis With Contrast Exam date and time: 10/26/2023 12:22 AM Age: 43 years old Clinical indication: Abdominal pain; Additional info: Abd pain, diarrhea, HX hernia TECHNIQUE: Imaging protocol: Computed tomography of the abdomen and pelvis with contrast. Radiation optimization: All CT scans at this facility use at least one of these dose optimization techniques: automated exposure control; mA and/or kV adjustment per patient size (includes targeted exams where dose is matched to clinical indication); or iterative reconstruction. Contrast material: ISOVUE; Contrast volume: 75 ml; Contrast route: IV; COMPARISON: 1. CT ABDOMEN PELVIS WO CON 05/17/2023 10:[address] ABDOMEN PELVIS W CON 02/19/2022 6:[address] ABDOMEN PELVIS W CON 12/15/2021 11:16 PM FINDINGS: Liver: Low-density lesions in the liver appear unchanged since at least December 15, 2021. Gallbladder and biliary ducts: No acute process. Pancreas: Normal. Spleen: Normal. Adrenal glands: The adrenal glands appear normal. Kidneys and ureters: There are no soft tissue renal masses or hydronephrosis. Stomach and bowel: There is laxity of the ventral abdominal wall with multiple protruding loops of bowel but no evidence for entrapment. Appendix: No evidence of appendicitis. Intraperitoneal space: Unremarkable. Vasculature: The abdominal aorta and its major branches appear normal without evidence of aneurysm or stenosis. There are pelvic phleboliths. Lymph nodes: No lymphadenopathy. Urinary bladder: Unremarkable as visualized. Reproductive: No acute process. Bones/joints: The visualized osseous structures of the abdomen and pelvis appear normal for patient age. Soft tissues: Unremarkable. IMPRESSION: 1. There is laxity of the ventral abdominal wall with multiple protruding loops of bowel but no evidence for entrapment. 2. Otherwise, incidental findings as above.
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
[2023-10-25] MEDS: ONDANSETRON 4MG/2ML VIAL 4 MG IV (23:35)
[2023-10-25] MEDS: ACETAMINOPHEN 1,000MG/100ML VIAL 1000 MG IV (23:35)
[2023-10-25] MEDS: LACTATED RINGERS 1000ML 1,000 ML 999 ML IV (23:36)
[2023-10-25 23:40] LABS: Basophils # 0.1 K/mm3 (0-0.2); Basophils % 1.7 % (0.1-2.0); Eosinophils # 0.2 K/mm3 (0.0-0.4); Eosinophils % 2.5 % (0.1-12.0); Hematocrit 42.7 % (37.0-47.0); Hemoglobin 13.8 g/dL (12.2-16.2); Lymphocytes # 2.2 K/mm3 (0.7-4.5); Lymphocytes % 31.4 % (10-50); Mean Corpuscular HGB Conc 32.4 g/dL (31.8-35.4); Mean Corpuscular Volume 92.7 fl (81-99); Mean Platelet Volume 8.1 fl (7.4-10.4); Monocytes # 0.4 K/mm3 (0.1-1.0); Monocytes % 6.2 % (1.7-9.3); Neutrophils # 4.1 K/mm3 (1.8-7.8); Neutrophils % 58.2 % (37.0-80.0); Platelet Count 320 K/mm3 (142-424); Red Cell Distribution Width 13.7 % (11.5-17.5)
[2023-10-25 23:40] LABS: Coronavirus 19, PCR Not Detected (NotDetected); Influenza A, PCR Not Detected (NotDetected); Influenza B, PCR Not Detected (NotDetected)
[2023-10-25 23:51] LABS: Alanine Aminotransferase 16 U/L (12-78); Albumin Level 3.5 g/dl (3.5-5.0); Albumin/Globulin Ratio 1.1 (1.1-1.8); Alkaline Phosphatase 70 U/L (38-126); Anion Gap 6.2 mEq/L (5-15); Aspartate Amino Transferase 28 U/L (14-36); Bilirubin,Total 0.4 mg/dl (0.2-1.3); Blood Urea Nitrogen 8 mg/dl (7-17); Calcium 8.8 mg/dl (8.4-10.2); Carbon Dioxide 34 mmol/L (22.0-30.0); Chloride 101 mmol/L (98-107); Creatinine Clearance Estimated 76 mL/min (50-200); Estimated Glomerular Filt Rate 69 ml/min (>60); GFR (African American) 83 ML/MIN (>60); Globulin 3.2 g/dL (1.3-3.2); Glucose 93 mg/dl (74-100); Lactic Acid 0.9 mmol/L (0.7-2.1); Lipase 76 U/L (23-300); Potassium 4.2 mmoL/L (3.5-5.1); Sodium 137 mmol/L (136-145); Total Protein,Serum 6.7 g/dl (6.3-8.2)
[2023-10-25 23:53] LABS: INR 0.89 (0.9-1.1); Prothrombin Time 10.1 seconds (10.1-12.5)
[2023-10-26] MEDS: IOPAMIDOL-370 (76%);100ML BOTTLE 75 ML IV (00:29)
[2023-10-26] MEDS: SODIUM CHLORIDE 0.9% 10ML SYR (RAD ONLY) 10 ML IV (00:29)
[2023-10-26 02:41] VITALS: BP 137/85; PULSE 64; RESP 18; TEMP 36.7; O2SAT 97
== END 2023-10-26 02:58 | disposition home or self-care (01) ==
PROVIDERS: Emergency Provider Emergency Medicine; PCP Family Medicine
DX: R11.2 Nausea with vomiting, unspecified (principal); R10.84 Generalized abdominal pain; R19.7 Diarrhea, unspecified; F17.210 Nicotine dependence, cigarettes, uncomplicated; J44.9 Chronic obstructive pulmonary disease, unspecified; I10 Essential (primary) hypertension
CPT/HCPCS: 74177; 80053; 83605; 83690; 85025; 85610; 87636; 96361; 96374; 96375; 99284; J0131; J2405; J7120; Q9967

== ENCOUNTER 2023-12-10 15:47 | Outpatient (CLI) | payer MEDICAID, SELFPAY ==
--- NOTE | 2023-12-10 15:50 | XR_ITS ---
PROCEDURE INFORMATION: Exam: XR Left Foot Complete; Alignment Exam date and time: 12/10/2023 3:57 PM Age: 43 years old Clinical indication: Pain; Foot; Bilateral; Additional info: Foot pain TECHNIQUE: Imaging protocol: Radiologic exam of the left foot. Views: 3 or more views. COMPARISON: CR XR FOOT LT MIN 3V 01/02/2023 10:29 AM FINDINGS: Bones/joints: Multiple views were obtained. The osseous structures appear intact with no evidence of acute fracture, dislocation, or malalignment. Joint spaces are preserved. No abnormal bone density or destructive lesions are noted. Soft tissues: Soft tissue swelling is observed, and further clinical correlation is advised. IMPRESSION: At the time of imaging, the skeletal radiograph demonstrates no acute osseous abnormalities but does show soft tissue swelling.
--- NOTE | 2023-12-10 15:50 | XR_ITS ---
PROCEDURE INFORMATION: Exam: XR Left Ankle Exam date and time: 12/10/2023 3:57 PM Age: 43 years old Clinical indication: Pain; Ankle; Left; Additional info: Ankle pain TECHNIQUE: Imaging protocol: Radiologic exam of the left ankle. Views: 3 or more views. COMPARISON: CR XR ANKLE WT BEARING LT MIN 3V 12/10/2023 3:57 PM FINDINGS: Bones/joints: Multiple views were obtained. The osseous structures appear intact with no evidence of acute fracture, dislocation, or malalignment. Joint spaces are preserved. No abnormal bone density or destructive lesions are noted. Soft tissues: Soft tissue swelling is observed, and further clinical correlation is advised. IMPRESSION: At the time of imaging, the skeletal radiograph demonstrates no acute osseous abnormalities but does show soft tissue swelling.
--- NOTE | 2023-12-10 15:50 | XR_ITS ---
PROCEDURE INFORMATION: Exam: XR Right Ankle Exam date and time: 12/10/2023 3:57 PM Age: 43 years old Clinical indication: Pain; Ankle; Right; Additional info: Ankle pain TECHNIQUE: Imaging protocol: Radiologic exam of the right ankle. Views: 3 or more views. COMPARISON: CR XR ANKLE WT BEARING RT MIN 3V 12/10/2023 3:57 PM FINDINGS: Bones/joints: Multiple views were obtained. The osseous structures appear intact with no evidence of acute fracture, dislocation, or malalignment. Joint spaces are preserved. No abnormal bone density or destructive lesions are noted. There is a surgical anchor noted in the calcaneus. Soft tissues: Soft tissue swelling is observed, and further clinical correlation is advised. IMPRESSION: At the time of imaging, the skeletal radiograph demonstrates no acute osseous abnormalities but does show soft tissue swelling.
--- NOTE | 2023-12-10 15:50 | XR_ITS ---
PROCEDURE INFORMATION: Exam: XR Right Foot Complete; Alignment Exam date and time: 12/10/2023 3:57 PM Age: 43 years old Clinical indication: Pain; Foot; Right; Additional info: Foot pain TECHNIQUE: Imaging protocol: Radiologic exam of the right foot. Views: 3 or more views. COMPARISON: CR XR FOOT WT BEARING RT 3V 12/10/2023 3:57 PM FINDINGS: Bones/joints: This is a surgical anchor noted within the calcaneus. Soft tissues: Normal. IMPRESSION: Postsurgical changes without acute injury or hardware abnormality.
== END 2023-12-10 23:59 | disposition home or self-care (01) ==
LOC: RAD 15:47
PROVIDERS: PCP Family Medicine; Visit Provider Podiatrist
DX: M25.571 Pain in right ankle and joints of right foot (principal); M25.572 Pain in left ankle and joints of left foot; M79.671 Pain in right foot; M79.672 Pain in left foot
CPT/HCPCS: 73610; 73630

== ENCOUNTER 2024-02-02 22:48 | Emergency (ER) | payer MEDICAID, SELFPAY ==
[2024-02-02 22:49] VITALS: BP 174/90; PULSE 88; RESP 18; TEMP 36.6; O2SAT 100; BMI 45.1
[2024-02-02 22:52] VITALS: BP 174/90; PULSE 78; O2SAT 98
[2024-02-02 23:01] VITALS: BP 172/99; PULSE 89; O2SAT 97
--- NOTE | 2024-02-02 23:02 | XR_ITS ---
PROCEDURE INFORMATION: Exam: XR Right Knee Exam date and time: 02/02/2024 11:01 PM Age: 43 years old Clinical indication: Pain; Knee; Right; Additional info: Knee pain TECHNIQUE: Imaging protocol: Radiologic exam of the right knee. Views: 1 or 2 views. COMPARISON: No relevant prior studies available. FINDINGS: Bones/joints: Normal. Soft tissues: Normal. IMPRESSION: No acute findings.
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
[2024-02-02 23:45] VITALS: PULSE 90; O2SAT 97
[2024-02-02] MEDS: ACETAMINOPHEN 500MG TAB 1000 MG PO (23:50)
[2024-02-02] MEDS: OXYCODONE 5MG IMMEDIATE RELEASE TABLET 5 MG PO (23:50)
[2024-02-02 23:54] LABS: Basophils # 0.1 K/mm3 (0-0.2); Eosinophils # 0.2 K/mm3 (0.0-0.4); Eosinophils % 2.4 % (0.1-12.0); Hematocrit 41.4 % (37.0-47.0); Hemoglobin 14.2 g/dL (12.2-16.2); Lymphocytes # 1.7 K/mm3 (0.7-4.5); Lymphocytes % 25.1 % (10-50); Mean Corpuscular HGB Conc 34.2 g/dL (31.8-35.4); Mean Corpuscular Hemoglobin 30.9 pg (27.0-31.2); Mean Corpuscular Volume 90.5 fl (81-99); Monocytes # 0.3 K/mm3 (0.1-1.0); Neutrophils # 4.4 K/mm3 (1.8-7.8); Neutrophils % 65.4 % (37.0-80.0); Platelet Count 327 K/mm3 (142-424); Red Blood Count 4.58 M/mm3 (4.20-5.40); Red Cell Distribution Width 13.5 % (11.5-17.5); White Blood Count 6.7 K/mm3 (4.8-10.8)
[2024-02-02 23:59] LABS: Alanine Aminotransferase 23 U/L (12-78); Albumin Level 3.9 g/dl (3.5-5.0); Albumin/Globulin Ratio 1.4 (1.1-1.8); Alkaline Phosphatase 77 U/L (38-126); Anion Gap 9.9 mEq/L (5-15); Aspartate Amino Transferase 36 U/L (14-36); Bilirubin,Total 0.6 mg/dl (0.2-1.3); Blood Urea Nitrogen 7 mg/dl (7-17); Calcium 8.7 mg/dl (8.4-10.2); Carbon Dioxide 32 mmol/L (22.0-30.0); Chloride 102 mmol/L (98-107); Creatinine Clearance Estimated 76 mL/min (50-200); Estimated Glomerular Filt Rate 69 ml/min (>60); GFR (African American) 83 ML/MIN (>60); Globulin 2.8 g/dL (1.3-3.2); Glucose 101 mg/dl (74-100); Potassium 3.9 mmoL/L (3.5-5.1); Sodium 140 mmol/L (136-145); Total Protein,Serum 6.7 g/dl (6.3-8.2)
[2024-02-03 00:18] LABS: HIV (1&2) Antibody Rapid NONREACTIVE (NONREACTIVE)
--- NOTE | 2024-02-03 00:45 | PC.NURSE ---
Called lab to check on the status of ESR and lab states it has 12 min remaining. notified.
[2024-02-03 01:14] VITALS: BP 121/79; PULSE 93; O2SAT 97
--- NOTE | 2024-02-03 01:14 | PC.NURSE ---
Called lab to check on the result of ESR again and the test Errored out so it will take approx [address] Campbell notified and he updated pt & SO at bedside.
[2024-02-03 01:21] LABS: Erythrocyte Sedimentation Rate 14 mm/hr (0-20)
[2024-02-03 01:26] VITALS: BP 124/78; PULSE 78; RESP 18; TEMP 36.6; O2SAT 98
[2024-02-04 07:24] LABS: HCV Ab Non Reactive (Non Reactive)
== END 2024-02-03 01:31 | disposition home or self-care (01) ==
PROVIDERS: Emergency Provider Emergency Medicine; PCP Family Medicine
DX: M25.561 Pain in right knee (principal)
CPT/HCPCS: 73560; 80053; 85025; 85651; 86140; 86803; 87040; 87389; 99283

== ENCOUNTER 2024-06-15 15:48 | Outpatient (CLI) | payer MEDICAID, SELFPAY ==
--- NOTE | 2024-06-15 16:00 | MM_ITS ---
PROCEDURE INFORMATION: Exam: MG Bilateral Screening 3D Mammography Exam date and time: 06/15/2024 3:54 PM Age: 44 years old Clinical indication: Screening exam. TECHNIQUE: Imaging protocol: Bilateral Screening tomosynthesis and 2D mammography including computer-aided detection (CAD) when performed. COMPARISON: 1. MG MM DIG SCREENING MAMM BI W/CAD 03/11/2023 2:59 PM 2. MG MM DIG MAMM BI DX W/CAD 01/21/2022 2:16 PM FINDINGS: MAMMOGRAPHY: Breast composition: The breasts are almost entirely fatty. Mass: No suspicious masses. Architectural distortion: None. Calcifications: No suspicious calcifications. Asymmetric density: None. Skin thickening: None. Axillary adenopathy: None. IMPRESSION: No mammographic evidence of malignancy. Annual screening is recommended unless otherwise clinically indicated. ASSESSMENT: BI-RADS Category 1: Negative.
== END 2024-06-15 23:59 | disposition home or self-care (01) ==
LOC: RAD 15:48
PROVIDERS: PCP Family Medicine; Visit Provider Family Medicine
DX: Z12.31 Encounter for screening mammogram for malignant neoplasm of breast (principal)
CPT/HCPCS: 77063; 77067

== ENCOUNTER 2024-06-20 02:05 | Emergency (ER) | payer MEDICAID, SELFPAY ==
[2024-06-20 02:12] VITALS: BP 148/100; PULSE 109; O2SAT 100
--- NOTE | 2024-06-20 02:12 | XR_ITS ---
PROCEDURE INFORMATION: Exam: XR Chest Exam date and time: 06/20/2024 2:37 AM Age: 44 years old Clinical indication: Other: Leg swelling TECHNIQUE: Imaging protocol: Radiologic exam of the chest. Views: 2 views. COMPARISON: CT ANGIO CHEST PE PROTOCOL 04/30/2023 7:20 PM FINDINGS: Lungs: No acute findings or consolidation. Pleural spaces: No pleural effusion. No pneumothorax. Heart/Mediastinum: No acute findings or cardiomegaly. Bones/joints: No acute findings. IMPRESSION: No acute cardiopulmonary findings.
[2024-06-20 02:18] VITALS: BP 148/100; PULSE 109; RESP 24; TEMP 37; O2SAT 100; BMI 41.9
--- NOTE | 2024-06-20 02:24 | ECG_ITS ---
APPROVED REPORT Exam: Resting ECG HR:85 bpm ECG Measurements Heart Rate 85 AXES AL 158 P 73 QRSd 112 QRS 85 QT 374 T 44 QTc 416 Conclusion SINUS RHYTHM WITH SINUS ARRHYTHMIA MODERATE INTRAVENTRICULAR CONDUCTION DELAY [110+ ms QRS DURATION] No STEMI Electronically signed by : NILDA JORGE, 06/20/2024 03:31:48
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
[2024-06-20 02:31] VITALS: BP 174/107; PULSE 63; RESP 19; O2SAT 95
[2024-06-20 02:32] VITALS: BMI 56.5
[2024-06-20] MEDS: LIDOCAINE 5% TRANSDERMAL PATCH 1 EACH TD (02:32)
[2024-06-20] MEDS: METHOCARBAMOL 500MG TABLET 500 MG PO (02:32)
[2024-06-20 02:37] LABS: Alanine Aminotransferase 17 U/L (12-78); Albumin Level 3.6 g/dl (3.5-5.0); Albumin/Globulin Ratio 1.2 (1.1-1.8); Alkaline Phosphatase 69 U/L (38-126); Anion Gap 7.8 mEq/L (5-15); Aspartate Amino Transferase 29 U/L (14-36); Bilirubin,Total 0.4 mg/dl (0.2-1.3); Blood Urea Nitrogen 11 mg/dl (7-17); Calcium 8.9 mg/dl (8.4-10.2); Carbon Dioxide 34 mmol/L (22.0-30.0); Chloride 100 mmol/L (98-107); Creatinine Clearance Estimated 75 mL/min (50-200); Estimated Glomerular Filt Rate 68 ml/min (>60); GFR (African American) 83 ML/MIN (>60); Glucose 93 mg/dl (74-100); Potassium 3.8 mmoL/L (3.5-5.1); Sodium 138 mmol/L (136-145); Total Protein,Serum 6.6 g/dl (6.3-8.2)
[2024-06-20 02:38] VITALS: BP 149/98; PULSE 89; RESP 10; O2SAT 99
[2024-06-20 02:43] LABS: C-Reactive Protein 8.5 mg/L (0-4)
[2024-06-20 02:46] LABS: Basophils # 0.1 K/mm3 (0-0.2); Basophils % 0.9 % (0.1-2.0); Eosinophils # 0.2 K/mm3 (0.0-0.4); Eosinophils % 1.7 % (0.1-12.0); Hematocrit 39.1 % (37.0-47.0); Hemoglobin 12.9 g/dL (12.2-16.2); Lymphocytes # 2.1 K/mm3 (0.7-4.5); Lymphocytes % 21.5 % (10-50); Mean Corpuscular Hemoglobin 30.1 pg (27.0-31.2); Mean Corpuscular Volume 91.4 fl (81-99); Mean Platelet Volume 10.5 fl (7.4-10.4); Monocytes # 0.8 K/mm3 (0.1-1.0); Monocytes % 8.1 % (1.7-9.3); Neutrophils # 6.7 K/mm3 (1.8-7.8); Neutrophils % 67.8 % (37.0-80.0); Platelet Count 315 K/mm3 (142-424); Red Blood Count 4.28 M/mm3 (4.20-5.40); White Blood Count 9.8 K/mm3 (4.8-10.8)
[2024-06-20 02:51] LABS: NT Pro Brain Natriuretic Pep. 158 pg/mL (0-125)
[2024-06-20 02:52] LABS: Troponin I < 0.01 ng/ml (0.00-0.034)
[2024-06-20 03:00] VITALS: BP 164/87; PULSE 89; RESP 14; O2SAT 95
--- NOTE | 2024-06-20 03:04 | PC.NURSE ---
provider at the bedside updating pt on POC
[2024-06-20 03:16] VITALS: BP 164/87; PULSE 94; RESP 20; TEMP 36.8; O2SAT 96
== END 2024-06-20 03:19 | disposition home or self-care (01) ==
PROVIDERS: Emergency Provider Emergency Medicine; PCP Family Medicine
DX: M54.9 Dorsalgia, unspecified (principal); R60.0 Localized edema
CPT/HCPCS: 71046; 80053; 83880; 84484; 85025; 86140; 93005; 99284

== ENCOUNTER 2024-09-27 16:20 | Outpatient (CLI) | payer MEDICAID, SELFPAY ==
--- OUTSIDE RECORDS SUMMARY | 2024-09-27 16:23 | XMS_ITS | Encounter Summary ---
Author Organization Healthcare Address [address] [place] [address] Care Team Providers Care Spun Paste Machine Operator Name Role Phone Maricarmen Kaye Primary Care Provider [phone] Encounter Details Date Type Department Care Team ([facility] st Contact Info) Description 12/08/2021 Community [facility] [address] [place] [address] Maricarmen Kaye PA [address] [place] [address] Rheumatoid arthritis, involving unspecified site, unspecified whether rheumatoid factor present (CMS/HCC) (Primary Dx) Social History Tobacco Use Types Packs/Day Years Used Date Smoking Tobacco: Never Assessed Comments Unknown Sex and Gender Information Value Date Recorded Sex Assigned at Not on file Legal Sex Female 3:10 PM EDT Gender Identity Not on file Sexual Orientation Not on file documented as of this encounter Plan of Treatment Not on file documented as of this encounter Visit Diagnoses Diagnosis Rheumatoid arthritis, involving unspecified site, unspecified whether rheumatoid factor present (CMS/HCC)- Primary documented in this encounter Care Teams Spun Paste Machine Operator Relationship Specialty Start Date End Date Maricarmen Kaye PA [address] [place] [address] PCP - General 01/20/22 documented as of this encounter
--- OUTSIDE RECORDS SUMMARY | 2024-09-27 16:23 | XMS_ITS | Encounter Summary ---
Author Organization Healthcare Address [address] [place] [address] Care Team Providers Care Spinner Hydraulic Name Role Phone Maricarmen Kaye Primary Care Provider [phone] Encounter Details Date Type Department Care Team (Late st Contact Info) Description 06/23/2023 Refill [facility] [address] [place] [address] Coleman Gomez MD [address] [place] [address] Seronegative rheumatoid arthritis of multiple sites (CMS/HCC) Social History Tobacco Use Types Packs/Day Years Used Date Smoking Tobacco: Every Day Cigarettes 0.5 28.5 Started: 1995 Smokeless Tobacco: Never Alcohol Use Standard Drinks/Week Comments Yes 3 (1 standard drink = 0.6 oz pur e alcohol) occasional PHQ-2 Answer Date Recorded Patient Health Questionnaire-2 Score 0 07/14/2022 PHQ-2A Answer Date Recorded Patient Health Questionnaire-2 Score 0 07/14/2022 Comments No Sex and Gender Information Value Date Recorded Sex Assigned at Not on file Legal Sex Female 3:10 PM EDT Gender Identity Not on file Sexual Orientation Not on file documented as of this encounter Miscellaneous Notes * Telephone Encounter - Coleman Gomez MD - 06/23/2023 5:35 PM EDT She needs an appointment with me or some other provider. Since she has RA diagnosis, she can switchproviders if there is no availability. Thanks documented in this encounter Plan of Treatment Not on file documented as of this encounter Visit Diagnoses Diagnosis Seronegative rheumatoid arthritis of multiple sites (CMS/[facility]) documented in this encounter Additional Health Concerns Assessment Noted Time PHQ-9 Depression Total Score: 11 022 8:32 AM EDT A fall risk assessment has been complete d for the patient 07/14/2022 9:31 AM EDT A Body Mass Index follow-up plan has been documented for the patient 07/29/2022 1:10 PM EDT documented as of this encounter Care Teams Spinner Hydraulic Relationship Specialty Start Date End Date Maricarmen Kaye PA [address] [place] [address] PCP - General 01/20/22 documented as of this encounter
--- OUTSIDE RECORDS SUMMARY | 2024-09-27 16:23 | XMS_ITS | Encounter Summary ---
Author Organization Healthcare Address [address] [place] [address] Care Team Providers Care Technical Solution Architect Name Role Phone Maricarmen Kaye Primary Care Provider [phone] Encounter Details Date Type Department Care Team ([facility] st Contact Info) Description 12/09/2021 Orders Only External Location [address] [place] [address] Provider, External Social History Tobacco Use Types Packs/Day Years Used Date Smoking Tobacco: Never Assessed Comments Unknown Sex and Gender Information Value Date Recorded Sex Assigned at Not on file Legal Sex Female 3:10 PM EDT Gender Identity Not on file Sexual Orientation Not on file documented as of this encounter Plan of Treatment Not on file documented as of this encounter Procedures Procedure Name Priority Date/Time Associated Diagnosis Comments CT PELVIS W AND WO IV CONTRAST 12/09/2021 2:10 PM EDT documented in this encounter Results * CT Pelvis w and wo IV Contrast (12/09/2021 2:10 PM EDT) Anatomical Region Laterality Modality Pelvis Computed Tomogra phy 12/09/2021 2:10 PM EDT us External Provider IMG CT PROCEDURES Final Result documented in this encounter Visit Diagnoses Not on filedocumented in this encounter Care Teams Technical Solution Architect Relationship Specialty Start Date End Date Maricarmen Kaye PA [address] [place] [address] PCP - General 01/20/22 documented as of this encounter
--- OUTSIDE RECORDS SUMMARY | 2024-09-27 16:23 | XMS_ITS | Encounter Summary ---
Author Organization Healthcare Address [address] [place] [id number] Care Team Providers Care Chef'S Assistant Name Role Phone Maricarmen Kaye Primary Care Provider [phone] Encounter Details Date Type Department Care Team ([facility] st Contact Info) Description 12/15/2021 Orders Only External Location [address] [place] [address] Kenneth Garrett MD [address] [place] [address] Social History Tobacco Use Types Packs/Day Years [...] Name Priority Date/Time Associated Diagnosis Comments CT ABDOMEN OUTSIDE IMAGES 12/15/2021 11:16 PM EDT documented in this encounter Results * CT ABDOMEN OUTSIDE IMAGES (12/15/2021 11:16 PM EDT) Anatomical Region Laterality Modality Computed Tomogra phy 12/15/2021 11:1 6 PM EDT Kenneth Garrett MD IMG CT PROCEDURES Final Resu lt documented in this encounter Visit Diagnoses Not on filedocumented in this encounter Care Teams Chef'S Assistant Relationship Specialty Start Date End Date Maricarmen Kaye PA [address] [place] [address] PCP - General 01/20/22 documented as of this encounter
--- OUTSIDE RECORDS SUMMARY | 2024-09-27 16:23 | XMS_ITS | Clinical Summary ---
Author Organization [facility] Address [address] [place] [address] Care Team Providers Care Financial Aid Officer Name Role Phone Maricarmen Kaye Primary Care Provider [phone] Allergies Active Allergy Reactions Criticality Noted Date Comments Ibuprofen Anaphylaxis,Itching High 01/20/2022 Morphine Itching,Other - plea se document in the comment field Medium 01/20/2022 Nausea Nsaids Anaphylaxis High 01/20/2022 Tramadol Anaphylaxis High 03/10/2022 Medications ProAir HFA 108 (90 Base) MCG/ACT inhaler 2 puffs. PRN 01/07/20 Active cyanocobalamin (Vitamin B-12) 1000 MCG/ML injection 1,000 mcg every 30 (thirty) days. 01/07/20 Active Anoro Ellipta 62.5-25 MCG/INH aerosol powder Inhale 62.5 mcg 2 (two) times a day. 01/07/20 Active FLUoxetine (PROzac) 20 MG capsule Take 20 mg by mouth 1 (one) time each day. 01/07/20 Active fluticasone (Flonase) 50 MCG/ACT nasal spray 1 spray 1 (one) time each day. 01/07/20 Active Aspirin Low Dose 81 MG EC tablet 81 mg 1 (one) time each day. 01/07/20 Active ondansetron ODT (Zofran-ODT) 4 MG disintegrating tablet Take 4 mg by mouth every 8 (eight) hours if needed. 01/07/20 Active rOPINIRole (Requip) 0.25 MG tablet Take 0.25 mg by mouth every night. 01/07/20 Active EPINEPHrine (Epipen) 0.3 MG/0.3ML injection syringe 02/27/20 22 Active B-D 3CC LUER-VELVET SYR 25GX1 25G X 1 3 ML misc 02/07/20 Active clobetasol (Temovate) 0.05 % cream Apply 1 application topically 2 (two) times a day. 45 g 1 04/08/19 23 Active Additional Information Patient not taking.Reported on 07/29/2022 pimecrolimus (Elidel) 1 % cream Apply topically 2 (two) times a day. 60 g 1 04/08/19 23 Active Additional Information Patient not taking.Reported on 07/29/2022 norethindrone (Aygestin) 5 MG tablet Take 1 tablet (5 mg total) by mouth 1 (one) time each day. 30 tablet 3 05/04/19 23 Active cloNIDine (Catapres) 0.1 MG tablet 2 (two) times a day if needed. 06/03/19 23 Active cyclobenzaprine (Flexeril) 10 MG tablet 2 (two) times a day. 04/29/19 23 Active desvenlafaxine (Pristiq) 50 MG 24 hr tablet 1 (one) time each day. 06/17/19 23 Active levocetirizine (Xyzal) 5 MG tablet 1 (one) time each day. 06/09/19 23 Active lisinopril-hydroCH LOROthiazide 20-12.5 MG tablet Take 1 tablet by mouth 1 (one) time each day. 10/26/19 22 Active Nicotine Step 2 14 MG/24HR patch 06/09/19 23 Active methotrexate 2.5 MG tabletIndications: Rheumatoid arthritis involving multiple sites, unspecified whether rheumatoid factor present (CMS/HCC) Take 8 tablets (20 mg total) by mouth 1 (one) time per week. 32 tablet 3 07/15/19 23 Active hydroxychloroquine (Plaquenil) 200 MG tabletIndications: Rheumatoid arthritis involving multiple sites, unspecified whether rheumatoid factor present (CMS/HCC) Take 1 tablet (200 mg total) by mouth 2 (two) times a day. 60 tablet 5 07/15/19 23 Active buprenorphine-nalo xone (Suboxone) 8-2 MG SL tablet 2 (two) times a day. 07/18/19 23 Active acetaminophen (Tylenol) 500 MG tablet Take 2 tablets (1,000 mg) by mouth every 8 (eight) hours if needed for pain. 30 tablet 08/14/19 Active docusate sodium (Colace) 100 MG capsule Take 1 capsule (100 mg) by mouth 2 (two) times a day if needed for constipation. 30 capsule 08/14/19 Active oxyCODONE (Roxicodone) 5 MG immediate release tablet Take 1 tablet (5 mg) by mouth every 4 (four) hours if needed for severe pain. 12 tablet 08/14/19 Active adalimumab (Humira Pen) 40 MG/0.8ML Pen-injector KitIndications:Ser onegative rheumatoid arthritis of multiple sites (CMS/HCC) Inject 0.8 mL (40 mg) under the skin every 14 (fourteen) days. 2 each 2 03/08/20 Active Active Problems Problem Noted Date Diagnosed Date Pelvic pain in female 05/08/2022 Overview (05/08/2022): Added automatically from request for surgery [id number] Recurrent abdominal hernia 01/20/2022 Morbid obesity 01/20/2022 Tobacco abuse disorder 01/20/2022 Family History Medical History Relation Name Comments Asthma Mother Cancer Mother Diabetes Mother Anesthesia problems Neg Hx Malig Hyperthermia Neg Hx Relation Name Status Comments Mother Social History Tobacco Use Types Packs/Day Years [...] on file Sexual Orientation Not on file Last Filed Vital Signs Vital Sign Reading Time Taken Comments Blood Pressure 150/66 08/13/2022 5:00 PM EDT Pulse 78 08/13/2022 5:05 PM EDT Temperature 36.2 C (97.1 F) 08/13/2022 4:03 PM EDT Respiratory Rate 10 08/13/2022 5:05 PM EDT Oxygen Saturation 95% 08/13/2022 5:05 PM EDT Inhaled Oxygen Concentration - - Weight 133 kg (293 lb) 08/13/2022 10:36 AM EDT Height 167.6 cm (5' 6 ) 08/13/2022 10:36 AM EDT Body Mass Index 47.29 08/13/2022 10:36 AM EDT Plan of Treatment Health Maintenance Due Date Last Done Comments [facility]-HIV Screening 1981 [facility]-/Child/Adol SDOH Screenings 1981 [id number] Vaccine (#1) 1986 [facility]-Varicella Vaccines (1 of 2 - 13+ 2-dose series) 1994 [facility]- SDOH Screenings 1999 [facility]-Adult SDOH Screenings 1999 [facility]-Hepatitis B Vaccines (1 of 3 - 19+ 3-dose series) 02/07/2000 [facility]-Zoster Vaccines (1 of 2) 02/07/2000 [facility]-Depression Screening 07/15/2023 07/14/2022, 1103/2021 [facility]-Influenza Vaccine (#1) 2024 01/05/2023 [facility]-DTaP,Tdap,and Td Vaccines (2 - Td or Tdap) 12/09/2031 12/08/2021 [facility]-Hepatitis C Screening Completed 03/10/2022 [facility]-Pneumococcal Vaccine: Pediatrics (0 to 5 Years) and At-Risk Patients (6 to 49 Years) Aged Out 03/31/2022 No longer eligible based on patient's age to complete this topic [facility]-Obesity Intervention Completed 023, 07/14/2022, 05/04/2022, Additional history exists HPV Vaccines Aged Out No longer eligi ble based on patient's age to complete this topic [facility]-HIB Vaccines Aged Out No longer e ligible based on patient's age to complete this topic [facility]-Hepatitis A Vaccines Aged Out No longer eligible based on patient's age to complete this topic [facility]-IPV Vaccines Aged Out No longer e ligible based on patient's age to complete this topic [facility]-Rotavirus Vaccines Aged Out No lo nger eligible based on patient's age to complete this topic Procedures Procedure Name Priority Date/Time Associated Diagnosis Comments ACUTE HEPATITIS PANEL Routine 03/10/2022 1:53 PM EST High risk medication use from Last 3 Months or Most Recently Relevant to Health Maintenance Results * Hepatitis panel, acute (03/10/2022 1:53 PM EST) Hepatitis B Surf Antigen Negative Negative 03/10/2022 7:31 PM EST [facility] Hepatitis C Antibody Negative Negative 03/10/2022 7:31 PM EST [facility] Hepatitis A Antibody IgM Negative Negative 03/10/2022 7:31 PM EST [facility] Hepatitis B Core Antibody IgM Negative Negative 03/10/2022 7:31 PM EST [facility] Blood Venous blood specimen / Unknown Venipuncture / Unknown 03/10/2022 1:53 PM EST 03/10/2022 1:57 PM EST us Coleman Gomez MD LAB BLOOD ORDERABLES nal Result [facility] [address] [place] [address] from Last 3 Months or Most Recently Relevant to Health Maintenance Insurance [facility] Care Teams Financial Aid Officer Relationship Specialty Start Date End Date Maricarmen Kaye PA [address] [place] [address] PCP - General 01/20/22
--- NOTE | 2024-09-27 16:26 | XR_ITS ---
PROCEDURE INFORMATION: Exam: XR Right Hand Exam date and time: 09/27/2024 4:35 PM Age: 44 years old Clinical indication: Pain; Hand; Right; Additional info: Fall, pain in right hand. C/O pain near 5th digit TECHNIQUE: Imaging protocol: Radiologic exam of the right hand. Views: 3 or more views. COMPARISON: CR XR WRIST RT MIN 3V 09/27/2024 4:35 PM FINDINGS: Bones/joints: No acute fracture or dislocation. Joint spaces are preserved. Normal bone mineralization. Normal carpal bone alignment. Radiocarpal joint is preserved. Soft tissues: No soft tissue swelling or radiopaque foreign body. IMPRESSION: No acute findings.
--- NOTE | 2024-09-27 16:26 | XR_ITS ---
PROCEDURE INFORMATION: Exam: XR Right Wrist Exam date and time: 09/27/2024 4:35 PM Age: 44 years old Clinical indication: Pain; Wrist; Right; Additional info: Fall, wrist pain. C/O pain near 5th mcp TECHNIQUE: Imaging protocol: Radiologic exam of the right wrist. Views: 3 or more views. COMPARISON: CR XR HAND RT MIN 3V 09/27/2024 4:35 PM FINDINGS: Bones/joints: No acute fracture or dislocation. Joint spaces are preserved. Normal bone mineralization. Normal carpal bone alignment. Radiocarpal joint is preserved. Soft tissues: No soft tissue swelling or radiopaque foreign body. IMPRESSION: No acute findings.
== END 2024-09-27 23:59 | disposition home or self-care (01) ==
LOC: RAD 16:22
PROVIDERS: PCP Family Medicine; Visit Provider Nurse Practitioner
DX: M25.531 Pain in right wrist (principal); M79.641 Pain in right hand; W19.XXXA Unspecified fall, initial encounter
CPT/HCPCS: 73110; 73130

== ENCOUNTER 2024-10-01 18:48 | Emergency (ER) | payer MEDICAID, SELFPAY ==
[2024-10-01 19:00] VITALS: BP 150/106; PULSE 80; RESP 16; TEMP 36.9; O2SAT 95; BMI 40.3
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
--- OUTSIDE RECORDS SUMMARY | 2024-10-01 19:12 | XMS_ITS | Encounter Summary ---
Author Organization Healthcare Address [address] [place] [address] Care Team Providers Care Imager Name Role Phone Maricarmen Kaye Primary Care Provider [phone] Encounter Details Date Type Department Care Team (Late st Contact Info) Description 06/23/2023 Refill [facility] [address] [place] [address] Coleman Gomez MD [address] [place] [address] Seronegative rheumatoid arthritis of multiple [...] Diagnosis Seronegative rheumatoid arthritis of multiple sites (CMS/[facility]) documented in this encounter Additional Health Concerns Assessment Noted Time PHQ-9 Depression Total Score: 11 022 8:32 AM EDT A fall risk assessment has been complete d for the patient 07/14/2022 9:31 AM EDT A Body Mass Index follow-up plan has been documented for the patient 07/29/2022 1:10 PM EDT documented as of this encounter Care Teams Imager Relationship Specialty Start Date End Date Maricarmen Kaye PA [address] [place] [address] PCP - General 01/20/22 documented as of this encounter
--- OUTSIDE RECORDS SUMMARY | 2024-10-01 19:12 | XMS_ITS | Encounter Summary ---
Author Organization Healthcare Address [address] [place] [address] Care Team Providers Care Cement Handler Name Role Phone Maricarmen Kaye Primary Care Provider [phone] Encounter Details Date Type Department Care Team ([facility] st Contact Info) Description 12/09/2021 Orders Only External Location [address] [place] [address] Provider, External Social History Tobacco Use Types [...] on filedocumented in this encounter Care Teams Cement Handler Relationship Specialty Start Date End Date Maricarmen Kaye PA [address] [place] [address] PCP - General 01/20/22 documented as of this encounter
--- OUTSIDE RECORDS SUMMARY | 2024-10-01 19:12 | XMS_ITS | Clinical Summary ---
Author Organization [facility] Address [address] [place] [address] Care Team Providers Care Collar Pointer Name Role Phone Maricarmen Kaye Primary Care Provider [phone] Allergies Active Allergy Reactions Criticality Noted Date [...] (05/08/2022): Added automatically from request for surgery [id number] Recurrent abdominal hernia 01/20/2022 Morbid obesity 01/20/2022 [...] Date Last Done Comments [facility]-HIV Screening 1981 [facility]-Infant/Child/Adol SDOH Screenings 1981 [id number] Vaccine (#1) 1986 [facility]-Varicella Vaccines (1 of [...] IgM Negative Negative 03/10/2022 7:31 PM EST [facility] Blood Venous blood specimen / Unknown Venipuncture / Unknown 03/10/2022 1:53 PM EST 03/10/2022 1:57 PM EST us Coleman Gomez MD LAB BLOOD ORDERABLES nal Result [facility] [address] [place] [address] from Last 3 Months or Most Recently Relevant to Health Maintenance Insurance [facility] MEDICAID Care Teams Collar Pointer Relationship Specialty Start Date End Date Maricarmen Kaye PA [address] [place] [address] PCP - General 01/20/22
--- OUTSIDE RECORDS SUMMARY | 2024-10-01 19:12 | XMS_ITS | Encounter Summary ---
Author Organization Healthcare Address [address] [place] [id number] Care Team Providers Care Paper Deliverer Name Role Phone Maricarmen Kaye Primary Care Provider [phone] Encounter Details Date Type Department Care Team ([facility] st Contact Info) Description 12/15/2021 Orders Only External Location [address] [place] [address] Kenneth Garrett MD [address] [place] [address] Social History Tobacco Use Types Packs/Day Years [...] on filedocumented in this encounter Care Teams Paper Deliverer Relationship Specialty Start Date End Date Maricarmen Kaye PA [address] [place] [address] PCP - General 01/20/22 documented as of this encounter
--- OUTSIDE RECORDS SUMMARY | 2024-10-01 19:12 | XMS_ITS | Encounter Summary ---
Author Organization Healthcare Address [address] [place] [address] Care Team Providers Care Corporate Development Manager Name Role Phone Maricarmen Kaye Primary Care Provider [phone] Encounter Details Date Type Department Care Team ([facility] st Contact Info) Description 12/08/2021 Community [facility] Community Practice [address] [place] [address] Maricarmen Kaye PA [address] [place] [address] Rheumatoid arthritis, involving unspecified site, [...] Primary documented in this encounter Care Teams Corporate Development Manager Relationship Specialty Start Date End Date Maricarmen Kaye PA [address] [place] [address] PCP - General 01/20/22 documented as of this encounter
[2024-10-01 19:30] VITALS: BP 141/97; PULSE 99; RESP 16; TEMP 36.4; O2SAT 97
[2024-10-01] MEDS: ACETAMINOPHEN 500MG TAB 1000 MG PO (19:43)
[2024-10-01] MEDS: BACITRACIN ZINC OINT 30GM TUBE TP (19:43)
--- NOTE | 2024-10-01 19:51 | PC.NURSE ---
wound cleansed on finger with irrigation, bacitracin applied with bandaid and rolled gauze
[2024-10-01 19:52] VITALS: BP 141/97; PULSE 97; RESP 16; TEMP 36.4; O2SAT 99
== END 2024-10-01 19:53 | disposition home or self-care (01) ==
PROVIDERS: Emergency Provider Student in an Organized Health Care Education/Training Program; PCP Family Medicine
DX: S61.213A Laceration without foreign body of left middle finger without damage to nail, initial encounter (principal); R21 Rash and other nonspecific skin eruption; L40.9 Psoriasis, unspecified; I10 Essential (primary) hypertension; F17.210 Nicotine dependence, cigarettes, uncomplicated; W23.0XXA Caught, crushed, jammed, or pinched between moving objects, initial encounter
CPT/HCPCS: 73120; 99283

== ENCOUNTER 2024-10-22 16:41 | Emergency (ER) | payer MEDICAID, SELFPAY ==
--- OUTSIDE RECORDS SUMMARY | 2024-10-22 17:29 | XMS_ITS | Encounter Summary ---
Author Organization Healthcare Address [address] [place] [address] Care Team Providers Care Seam Taper Machine Name Role Phone Maricarmen Kaye Primary Care Provider Encounter Details Date Type Department Care Team ([facility] st Contact Info) Description 12/09/2021 Orders Only External Location [address] [place] [address] Provider, External Social History Tobacco Use Types [...] on filedocumented in this encounter Care Teams Seam Taper Machine Relationship Specialty Start Date End Date Maricarmen Kaye PA [address] [place] [address] PCP - General 01/20/22 documented as of this encounter
--- OUTSIDE RECORDS SUMMARY | 2024-10-22 17:29 | XMS_ITS | Encounter Summary ---
Author Organization Healthcare Address [address] [place] [address] Care Team Providers Care Pharmaceutical Compounding Supervisor Name Role Phone Maricarmen Kaye Primary Care Provider [phone] Encounter Details Date Type Department Care Team (Late st Contact Info) Description 06/23/2023 Refill [facility] [address] [place] [address] Coleman Gomez MD [address] [place] [address] Seronegative rheumatoid arthritis of multiple sites (CMS/HCC) Social History Tobacco Use Types Packs/Day Years Used Date Smoking Tobacco: Every Day Cigarettes 0.5 28.6 Started: 1996 Smokeless Tobacco: Never Alcohol Use [...] Diagnosis Seronegative rheumatoid arthritis of multiple sites (CMS/[facility]) documented in this encounter Additional Health Concerns Assessment Noted Time PHQ-9 Depression Total Score: 11 022 8:32 AM EDT A fall risk assessment has been complete d for the patient 07/14/2022 9:31 AM EDT A Body Mass Index follow-up plan has been documented for the patient 07/29/2022 1:10 PM EDT documented as of this encounter Care Teams Pharmaceutical Compounding Supervisor Relationship Specialty Start Date End Date Maricarmen Kaye PA [address] [place] [address] PCP - General 01/20/22 documented as of this encounter
--- OUTSIDE RECORDS SUMMARY | 2024-10-22 17:29 | XMS_ITS | Encounter Summary ---
Author Organization Healthcare Address [address] [place] [address] Care Team Providers Care Design Printer Balloon Name Role Phone Maricarmen Kaye Primary Care Provider [phone] Encounter Details Date Type Department Care Team ([facility] st Contact Info) Description 12/08/2021 Community [facility] Community Practice [address] [place] [address] Maricarmen Kaye PA [address] [place] [address] Rheumatoid arthritis, involving unspecified site, [...] Primary documented in this encounter Care Teams Design Printer Balloon Relationship Specialty Start Date End Date Maricarmen Kaye PA [address] [place] [address] PCP - General 01/20/22 documented as of this encounter
--- OUTSIDE RECORDS SUMMARY | 2024-10-22 17:29 | XMS_ITS | Clinical Summary ---
Author Organization [facility] Address [address] [place] [address] Care Team Providers Care Enrollment Management Manager Name Role Phone Maricarmen Kaye Primary Care Provider [phone] Allergies Active Allergy Reactions Criticality Noted Date [...] (05/08/2022): Added automatically from request for surgery [id number] Recurrent abdominal hernia 01/20/2022 Morbid obesity 01/20/2022 [...] [facility]-HIV Screening 1981 [facility]-/Child/Adol SDOH Screenings 1981 ALL-YSIJS-16 Vaccine (#1) 1986 [facility]-Varicella Vaccines (1 of [...] IgM Negative Negative 03/10/2022 7:31 PM EST [facility] Blood Venous blood specimen / Unknown Venipuncture / Unknown 03/10/2022 1:53 PM EST 03/10/2022 1:57 PM EST us Coleman Gomez MD LAB BLOOD ORDERABLES nal Result [facility] [address] [place] [address] from Last 3 Months or Most Recently Relevant to Health Maintenance Insurance [facility] MEDICAID Care Teams Enrollment Management Manager Relationship Specialty Start Date End Date Maricarmen Kaye PA [address] [place] [address] PCP - General 01/20/22
--- OUTSIDE RECORDS SUMMARY | 2024-10-22 17:29 | XMS_ITS | Encounter Summary ---
Author Organization Healthcare Address [address] [place] [id number] Care Team Providers Care Supervisor Mold Construction Name Role Phone Maricarmen Kaye Primary Care Provider [phone] Encounter Details Date Type Department Care Team ([facility] st Contact Info) Description 12/15/2021 Orders Only External Location [address] [place] [address] Kenneth Garrett MD [address] [place] [address] Social History Tobacco Use Types Packs/Day Years [...] on filedocumented in this encounter Care Teams Supervisor Mold Construction Relationship Specialty Start Date End Date Maricarmen Kaye PA [address] [place] [address] PCP - General 01/20/22 documented as of this encounter
== END 2024-10-22 17:20 | disposition left against medical advice (07) ==
LOC: ER 17:28
PROVIDERS: Emergency Provider Student in an Organized Health Care Education/Training Program; PCP Family Medicine
DX: Z53.21 Procedure and treatment not carried out due to patient leaving prior to being seen by health care provider (principal)
CPT/HCPCS: 99211

== ENCOUNTER 2025-01-19 22:46 | Emergency (ER) | payer MEDICAID, SELFPAY ==
[2025-01-19 22:55] VITALS: BP 197/94; PULSE 95; RESP 18; TEMP 37.1; O2SAT 94; BMI 40.3
[2025-01-19 23:11] LABS: Coronavirus 19, PCR Not Detected (NotDetected); Influenza A, PCR Not Detected (NotDetected); Influenza B, PCR Not Detected (NotDetected)
--- OUTSIDE RECORDS SUMMARY | 2025-01-19 23:18 | XMS_ITS | Encounter Summary ---
Author Organization Healthcare Address [address] [place] [address] Care Team Providers Care Range Technician Name Role Phone Maricarmen Kaye Primary Care Provider [phone] Encounter Details Date Type Department Care Team (Late st Contact Info) Description 06/23/2023 Refill [facility] [address] [place] [address] Coleman Gomez MD [address] [place] [address] Seronegative rheumatoid arthritis of multiple sites (CMS/HCC) Social History Tobacco Use Types Packs/Day Years Used Date Smoking Tobacco: Every Day Cigarettes 0.5 28.8 Started: 1996 Smokeless Tobacco: Never Alcohol Use [...] Diagnosis Seronegative rheumatoid arthritis of multiple sites (CMS/[facility]) documented in this encounter Additional Health Concerns Assessment Noted Time PHQ-9 Depression Total Score: 11 022 8:32 AM EDT A fall risk assessment has been complete d for the patient 07/14/2022 9:31 AM EDT A Body Mass Index follow-up plan has been documented for the patient 07/29/2022 1:10 PM EDT documented as of this encounter Care Teams Range Technician Relationship Specialty Start Date End Date Maricarmen Kaye PA [address] [place] [address] PCP - General 01/20/22 documented as of this encounter
--- OUTSIDE RECORDS SUMMARY | 2025-01-19 23:18 | XMS_ITS | Encounter Summary ---
Author Organization Healthcare Address [address] [place] [id number] Care Team Providers Care Hris Analyst Name Role Phone Maricarmen Kaye Primary Care Provider [phone] Encounter Details Date Type Department Care Team ([facility] st Contact Info) Description 12/15/2021 Orders Only External Location [address] [place] [address] Kenneth Garrett MD [address] [place] [address] Social History Tobacco Use Types Packs/Day Years [...] on filedocumented in this encounter Care Teams Hris Analyst Relationship Specialty Start Date End Date Maricarmen Kaye PA [address] [place] [address] PCP - General 01/20/22 documented as of this encounter
--- OUTSIDE RECORDS SUMMARY | 2025-01-19 23:19 | XMS_ITS | Clinical Summary ---
Author Organization [facility] Address [address] [place] [address] Care Team Providers Care Carton Filler Name Role Phone Maricarmen Kaye Primary Care Provider [phone] Allergies Active Allergy Reactions Criticality Noted Date [...] Active Problems Problem Noted Date Diagnosed Date Recurrent abdominal hernia 01/20/2022 Morbid obesity 01/20/2022 Tobacco abuse disorder 01/20/2022 Resolved Problems Problem Noted Date Diagnosed Date Resolved Date Pelvic pain in female 05/08/20222024 Overview (05/08/2022): Added automatically from request for surgery [id number] Family History Medical History Relation Name Comments [...] [facility]-HIV Screening 1981 [facility]-/Child/Adol SDOH Screenings 1981 [id number] Vaccine (#1) 1986 [facility]-Varicella Vaccines (1 of 2 - 13+ 2-dose series) 1994 [facility]- SDOH Screenings 1999 [facility]-Adult SDOH Screenings 1999 [facility]-Hepatitis B Vaccines (1 of 3 - 19+ 3-dose series) 02/07/2000 [facility]-Zoster Vaccines (1 of 2) 02/07/2000 HPV Vaccines (1 - Risk 3-dose SCDM series) 02/07/2008 [facility]-Depression Screening 07/15/2023 07/14/2022, 11/0 03/2021 [facility]-Influenza Vaccine (#1) 2024 01/05/2023 [facility]-DTaP,Tdap,and Td Vaccines (2 - Td or Tdap) 12/09/2031 12/08/2021 [facility]-Hepatitis C Screening Completed 03/10/2022 [facility]-Pneumococcal Vaccine: Pediatrics (0 to 5 Years) and At-Risk Patients (6 to 49 Years) Aged Out 03/31/2022 No longer eligible based on patient's age to complete this topic [facility]-Obesity Intervention Completed 023, 07/14/2022, 05/04/2022, Additional history exists [facility]-HIB Vaccines Aged Out No longer e [...] IgM Negative Negative 03/10/2022 7:31 PM EST [facility] Blood Venous blood specimen / Unknown Venipuncture / Unknown 03/10/2022 1:53 PM EST 03/10/2022 1:57 PM EST Coleman Gomez MD LAB BLOOD ORDERABLES Fi nal Result [facility] [address] [place] [address] from Last 3 Months or Most Recently Relevant to Health Maintenance Insurance Care Teams Carton Filler Relationship Specialty Start Date End Date Maricarmen Kaye PA [address] [place] [address] PCP - General 01/20/22
--- OUTSIDE RECORDS SUMMARY | 2025-01-19 23:19 | XMS_ITS | Encounter Summary ---
Author Organization Healthcare Address [address] [place] [address] Care Team Providers Care Foundry Operator Name Role Phone Maricarmen Kaye Primary Care Provider [phone] Encounter Details Date Type Department Care Team ([facility] st Contact Info) Description 12/08/2021 Community [facility] Community Practice [address] [place] [address] Maricarmen Kaye PA [address] [place] [address] Rheumatoid arthritis, involving unspecified site, [...] Primary documented in this encounter Care Teams Foundry Operator Relationship Specialty Start Date End Date Maricarmen Kaye PA [address] [place] [address] PCP - General 01/20/22 documented as of this encounter
--- OUTSIDE RECORDS SUMMARY | 2025-01-19 23:19 | XMS_ITS | Encounter Summary ---
Author Organization Healthcare Address [address] [place] [address] Care Team Providers Care Butcher Or Smallgoods Maker Name Role Phone Maricarmen Kaye Primary Care Provider [phone] Encounter Details Date Type Department Care Team ([facility] st Contact Info) Description 12/09/2021 Orders Only External Location [address] [place] [address] Provider, External Social History Tobacco Use Types [...] on filedocumented in this encounter Care Teams Butcher Or Smallgoods Maker Relationship Specialty Start Date End Date Maricarmen Kaye PA [address] [place] [address] PCP - General 01/20/22 documented as of this encounter
[2025-01-19 23:20] LABS: Strep Scrn Group A (Rapid) Negative (Negative)
--- NOTE | 2025-01-19 23:32 | XR_ITS ---
PROCEDURE INFORMATION: Exam: XR Chest Exam date and time: 01/19/2025 11:34 PM Age: 44 years old Clinical indication: Cough; Additional info: Cough, ill x5d TECHNIQUE: Imaging protocol: Radiologic exam of the chest. Views: 2 views. COMPARISON: 1. CR XR CHEST 2V 06/20/2024 2:37 AM 2. CR XR CHEST 2V 03/21/2022 2:26 PM FINDINGS: Lungs: Unremarkable. No consolidation. Pleural spaces: Unremarkable. No pleural effusion. No pneumothorax. Heart/Mediastinum: Unremarkable. No cardiomegaly. Bones/joints: Unremarkable. IMPRESSION: Stable chest x-ray with no acute disease.
[2025-01-19 23:42] VITALS: O2SAT 99
[2025-01-20 00:07] VITALS: BP 188/78; PULSE 90; RESP 22; TEMP 36.8; O2SAT 95
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
[2025-01-20] MEDS: AMOXICILLIN/CLAVULANATE POTASSIUM 875/125MG TABLET 1 EACH PO (00:09)
== END 2025-01-20 00:12 | disposition home or self-care (01) ==
PROVIDERS: Emergency Provider Emergency Medicine; PCP Family Medicine
DX: J18.9 Pneumonia, unspecified organism (principal); R06.89 Other abnormalities of breathing; R07.0 Pain in throat; F17.210 Nicotine dependence, cigarettes, uncomplicated; J44.0 Chronic obstructive pulmonary disease with (acute) lower respiratory infection; Z20.822 Contact with and (suspected) exposure to COVID-19
CPT/HCPCS: 71046; 87430; 87636; 99283; J2004